=== PATIENT | male | born 1990 | race Caucasian/White ===

== ENCOUNTER 2021-04-20 10:43 | Emergency (ER) | payer SELFPAY ==
--- NOTE | ~2021-04-20 | CT_ITS ---
EXAMINATION: CT abdomen pelvis w con EXAM DATE: 04/20/2021 12:28 INDICATION: Right lower quadrant pain. TECHNIQUE: Spiral CT of the abdomen and pelvis was performed following intravenous injection of 100 m L Omnipaque 350. Axial, coronal and sagittal images of the abdomen and pelvis were reviewed. The do se-length product (DLP) for this examination was 1361.02 mGy-cm. The exposure was tailored according to patient size (auto mA exposure control), and iterative reconstruction (ASIR) was used as addition al dose reduction technique. There is no prior study for comparison. FINDINGS: The liver, spleen, adrenal glands and pancreas are unremarkable. Gallbladder is unremarkab le. No biliary obstruction. Portal and splenic veins are patent. Kidneys enhance symmetrically. T here is no hydronephrosis. The prostate is unremarkable. The bladder is unremarkable. There is no retroperitoneal or pelvic lymphadenopathy. The appendix is normal. The stomach and small bowel are unremarkable. There is colonic fluid, corre late for diarrhea. No free intraperitoneal gas. The heart is normal in size. There are no perica rdial or pleural effusions. The lung bases are unremarkable. The bones are unremarkable. IMPRESSION: 1. Colonic fluid. 2. Normal appendix. Reviewed, dictated and finalized at location A.
[2021-04-20 10:46] VITALS: BP 165/94; PULSE 79; RESP 18; TEMP 37.1; O2SAT 100
[2021-04-20 10:57] LABS: Basophils Absolute Auto 0.1 K/mm3 (0.0-0.1); Basophils Percent Auto 0.6 % (0.2-1.2); Eosinophils Absolute Auto 0.2 K/mm3 (0-0.3); Eosinophils Percent Auto 1.6 % (0-4.4); Hematocrit 45.6 % (42.0-52.0); Hemoglobin 15.1 g/dL (14.0-18.0); Immature Granulocyte Absolute 0.06 K/mm3 (0.00-0.031); Immature Granulocyte Percent A 0.4 % (0-0.5); Lymphocytes Absolute Auto 3.22 K/mm3 (0.9-3.2); Lymphocytes Percent Auto 21.7 % (18.3-44.2); Mean Corpuscular HGB Conc 33.1 g/dl (32-36); Mean Corpuscular Hemoglobin 28.7 pg (26-34); Mean Corpuscular Volume 86.5 fl (80-100); Mean Platelet Volume 9.8 fl (7.4-10.4); Monocytes Absolute Auto 0.7 K/mm3 (0.1-0.6); Monocytes Percent Auto 4.7 % (2.6-8.5); Neutrophils Absolute Auto 10.5 K/mm3 (1.3-6.7); Platelet Count Result 298 k/mm3 (150-375); Red Blood Count 5.27 M/mm3 (4.6-6.20); Red Cell Distribution Width 12.7 % (11.5-14.5); White Blood Count 14.8 K/mm3 (4.5-10.0)
[2021-04-20 11:07] LABS: Alanine Aminotransferase 28 U/L (4-50); Albumin Level 4.5 g/dL (3.5-5.1); Alkaline Phosphatase 89 U/L (38-126); Anion Gap 10 mmol/L (8-16); Aspartate Amino Transferase 24 U/L (17-59); Bilirubin,Total 0.5 mg/dL (0.2-1.3); Blood Urea Nitrogen 10 mg/dL (9-20); Calcium 9.6 mg/dL (8.4-10.2); Carbon Dioxide 25 mmol/L (22-30); Chloride 106 mmol/L (98-107); Estimated CRCL calculation 153 ml/min; Estimated Glomerular Filt Rate > 60; Glucose 101 mg/dL (75-110); Lipase 270 U/L (23-300); Potassium 4.2 mmol/L (3.4-5.0); Sodium 141 mmol/L (137-145)
--- NOTE | 2021-04-20 11:55 | ED.GENADULT ---
HPI - General Adult General Chief complaint: Unspecified Stated complaint: WHITE/Diarrhea/Not Feeling Well Time Seen by Provider: 04/20/21 11:54 History of Present Illness HPI narrative: RLQ pain for the past 2 days. Acutely worse since this morning, 04/22. Associated with watery diarrhea and nausea. Different fro usual IBS pain. Headache since this morning. Pulsating in quality. Different than typical headaches. Related Data Home Medications Medication Instructions Recorded Confirmed albuterol sulfate 2.5 mg INHALATION Q4-6H PRN 04/28/20 Allergies Allergy/AdvReac Type Severity Reaction Status Date / Time No Known Drug Allergies Allergy Unknown Unknown Verified 04/20/21 12:04 Feathers Allergy Intermediate Unknown Uncoded 04/28/20 07:11 Grass Allergy Unknown Unknown Uncoded 04/28/20 07:11 milk Allergy Unknown Unknown Uncoded 04/28/20 07:11 Review of Systems Review of Systems: All systems reviewed & are unremarkable except as noted in HPI and below Constitutional: Constitutional: Denies fever(s) and Reports headache(s) Eyes: Eyes: Reports no additional eye complaints ENT: Reports system reviewed and no additional complaints, except as documented Cardiovascular: Cardiovascular: Denies chest pain Respiratory: Respiratory: Denies dyspnea Gastrointestinal: Gastrointestinal: Reports as per HPI Genitourinary: Genitourinary: Denies hematuria and Denies dysuria Integumentary/Breasts: Skin/Breast: Reports system reviewed and no additional complaints, except as docu Neurologic: Reports system reviewed and no additional complaints, except as documented [facility] Past Medical History Medical History (Updated 04/20/21 @ 15:30 by Jaime Gurrola MD) Asthma Cigarette nicotine dependence Hypertension DYLAN on CPAP Overweight Family History Family History Mother Asthma Social History Social History Smoking status: Former smoker Tobacco type: cigarettes and cigars Additional smoking assessment comments: Quit 2019 Exam Const: General: healthy appearing, no acute distress and alert Nutritional Appearance: obese Orientation/consciousness: patient oriented x3 HENMT: Head: normal to inspection Eyes: Pupils: Equal, round and reactive pupils present Neck: Neck: normal visual inspection and no lymphadenopathy Resp: Effort & Inspection: normal respiratory effort Auscultation: clear to auscultation bilaterally, no rales, no rhonchi and no wheezes Cardio: Jugular venous distension: no JVD Rate: regular rate Rhythm: regular rhythm Heart sounds: no murmurs GI: Inspection: non-distended GI Palp: Yes Soft to palpation, Yes Tenderness to palpation present (GI) (RLQ), No Guarding due to palpation present (GI) and No Rebound tenderness present Auscultation: normal bowel sounds Skin: General skin exam: normal color Neuro: General: patient oriented x3 and moves all extremities Speech: normal speech Extrem: General: no edema Psych: Appearance: well kempt Affect: normal affect Course Vital Signs Vital signs: Vital Signs Temperature 37.1 C 04/20/21 10:46 Pulse Rate 79 04/20/21 10:46 Respiratory Rate 18 04/20/21 10:46 Blood Pressure 165/94 H 04/20/21 10:46 Pulse Oximetry 100 04/20/21 10:46 Temperature 37.1 C 04/20/21 10:46 Pulse Rate 79 04/20/21 10:46 Respiratory Rate 18 04/20/21 10:46 Blood Pressure 165/94 H 04/20/21 10:46 Pulse Oximetry 100 04/20/21 10:46 Medical Decision Making MDM Narrative Medical decision making narrative: CT shows fluid in the colon. Most likely viral enteritis. Headache probably related to dehydration from the diarrhea. Differential Diagnosis Differential Diagnosis: Appendicitia, IBS, colitis, other Medical Records Medical records reviewed: Yes I reviewed the external patient's medical records. Vital Signs Vital Signs: Vital Sign
[2021-04-20 12:10] LABS: Add Urine Microscopic? NO; Appearance Urine Clear (Clear); Bilirubin Urine Negative (Negative); Blood Urine Negative (Negative); Color Urine Straw (Yellow); Glucose Urine UA Negative (Negative); Ketones Urine Negative (Negative); Leukocyte Esterase Ur Negative LEU/UL (Negative); Nitrate Urine Negative (Negative); Protein Urine Negative (Negative); Specific Grav Ur 1.014 (1.001-1.035); Urobilinogen Urine Negative mg/dL (<2.0)
[2021-04-20] MEDS: METOCLOPRAMIDE HCL INJ 10 MG/2 ML VIAL IV PUSH (12:13)
[2021-04-20] MEDS: MORPHINE SULFATE (*CRX) 4 MG/ML INJ IV PUSH (12:13)
[2021-04-20] MEDS: SODIUM CHLORIDE 0.9% IV 1,000 ML 999 ML IV CONT (12:13)
[2021-04-20 12:51] LABS: INR 0.8; Prothrombin Time 12.1 Seconds (11.1-14.7)
[2021-04-20 12:52] LABS: Partial Thromboplastin Time 35.2 SECONDS (22.3-36.8)
[2021-04-20] MEDS: DICYCLOMINE HCL INJ 20 MG/2 ML VIAL IM (13:02)
[2021-04-20] MEDS: SODIUM CHLORIDE 0.9% IV 2,000 ML 999 ML IV CONT (13:03)
[2021-04-20] MEDS: KETOROLAC 30 MG/ML VIAL (*BKC) IV PUSH (14:39)
== END 2021-04-20 15:51 | disposition home or self-care (01) ==
PROVIDERS: Emergency Medicine; Emergency Provider Emergency Medicine
DX: K52.9 Noninfective gastroenteritis and colitis, unspecified (principal); J45.909 Unspecified asthma, uncomplicated; G47.33 Obstructive sleep apnea (adult) (pediatric); E66.3 Overweight; Z68.38 Body mass index [BMI] 38.0-38.9, adult; Z87.891 Personal history of nicotine dependence
CPT/HCPCS: 36415; 74177; 80053; 81003; 83690; 85025; 85610; 85730; 96361; 96372; 96374; 96375; 99284; J0500; J1885; J2270; J2765; J7030; Q9967

== ENCOUNTER 2021-07-22 08:38 | Observation (INO) | payer OTHER, SELFPAY ==
--- NOTE | ~2021-07-22 | XR_ITS ---
EXAMINATION: XR chest 1V portable INDICATION: Shortness of breath, severe cough, COVID positive TECHNIQUE: Portable AP chest at 0939 hours COMPARISON: 01/06/2019 FINDINGS: The lung volumes are low. There are patchy bilateral airspace opacities. No pleural effusio n or pneumothorax is identified. The cardiomediastinal silhouette is normal. IMPRESSION: 1. Patchy bilateral airspace opacities, consistent with atelectasis versus pneumonia. Reviewed, dictated and finalized at location B. IMPRESSION: 1. Patchy bilateral airspace opacities, consistent with atelectasis versus pneu monia.
[2021-07-22 08:38] VITALS: BP 144/87; PULSE 130; RESP 14; TEMP 39.8; O2SAT 97
[2021-07-22 09:19] LABS: SARS-CoV-2 Ag Positive (Negative)
[2021-07-22 09:29] LABS: Basophils Absolute Auto 0.02 K/mm3 (0.00-0.10); Basophils Percent Auto 0.2 % (0.0-1.0); Hematocrit 43.4 % (40.0-54.0); Hemoglobin 14.9 g/dL (14.0-18.0); Immature Granulocyte Absolute 0.03 K/mm3 (0.00-0.00); Immature Granulocyte Percent A 0.4 % (0.0-0.0); Lymphocytes Absolute Auto 1.31 K/mm3 (1.10-4.50); Lymphocytes Percent Auto 15.7 % (18.0-42.0); Mean Corpuscular HGB Conc 34.3 g/dL (32.0-36.0); Mean Corpuscular Hemoglobin 28.9 pg (27.0-31.0); Mean Corpuscular Volume 84.3 fL (78.0-102.0); Mean Platelet Volume 9.9 fl (8.7-11.0); Monocytes Absolute Auto 0.48 K/mm3 (0.10-0.90); Monocytes Percent Auto 5.7 % (2.0-11.0); Neutrophils Absolute Auto 6.5 K/mm3 (1.7-7.2); Platelet Count Result 184 K/mm3 (150-420); Red Blood Count 5.15 M/mm3 (4.70-6.10); Red Cell Distribution Width 12.7 % (11.6-14.4); White Blood Count 8.4 K/mm3 (4.8-10.8)
[2021-07-22 09:31] LABS: Base Excess ABG 0.6 mmol/L (0-2); Device ROOM AIR; HCO3 ABG 21.8 mmol/L (23-29); Modified Allen's Test Pass; Oxygen Content ABG 20.8 %vol (16.0-22.0); Oxygen Saturation ABG 96.1 % (95-97); Oxyhemoglobin 95.4 % (94-100); PCO2 ABG 27.1 mmHg (35-45); PO2 ABG 75.6 mmHg (80-90); Site Drawn LEFT RADIAL; Total Hemoglobin 15.5 g/dL (12.0-18.0); pH ABG 7.52 (7.35-7.45)
[2021-07-22 09:52] LABS: Alanine Aminotransferase 44 U/L (16-63); Albumin Level 3.6 g/dL (3.4-5.0); Alkaline Phosphatase 68 U/L (46-116); Anion Gap 14 mmol/L (8-16); Aspartate Amino Transferase 32 U/L (15-37); Bilirubin,Total 0.7 mg/dL (0.00-1.00); Blood Urea Nitrogen 8 mg/dL (7-18); Calcium 8.5 mg/dL (8.5-10.1); Carbon Dioxide 23 mmol/L (21-32); Chloride 101 mmol/L (98-108); Estimated CRCL calculation 112 ml/min; Estimated Glomerular Filt Rate > 60; Glucose 115 mg/dL (70-99); Osmolality Calculated 285 mOsm/kg (285-295); Potassium 3.5 mmol/L (3.5-5.1); Sodium 138 mmol/L (136-145); Total Protein 8.1 g/dL (6.4-8.2)
[2021-07-22] MEDS: SODIUM CHLORIDE 0.9% IV 1,000 ML 999 ML IV CONT (10:00)
--- NOTE | 2021-07-22 10:08 | ED.URI ---
HPI - URI/Sore Throat General Chief Complaint: Upper Respiratory Infection Stated Complaint: FEVER COUGH Source: patient Mode of arrival: ambulatory Limitations: no limitations History of Present Illness HPI Narrative: this is a 31-year-old unvaccinated the COVID gentleman that presents with a positive exposure to COVID with shortness of breath with some increased heart rate with fever shortness breath cough that is nonproductive with no chest pain no nausea vomiting no abdominal pain. MD elicited complaint: fever, cough and nasal congestion Onset (ago): day(s) Consistency: constant Severity: moderate Related Data Home Medications Medication Instructions Recorded Confirmed No Home Medications 07/22/21 07/22/21 Allergies Allergy/AdvReac Type Severity Reaction Status Date / Time No Known Drug Allergies Allergy Unknown Unknown Verified 04/20/21 12:04 Feathers Allergy Intermediate Unknown Uncoded 04/28/20 07:11 Grass Allergy Unknown Unknown Uncoded 04/28/20 07:11 milk Allergy Unknown Unknown Uncoded 04/28/20 07:11 Review of Systems Review of Systems: All systems reviewed & are unremarkable except as noted in HPI and below PMFSH Past Medical History Medical History (Updated 07/22/21 @ 10:11 by Paul Michael MD) Asthma Cigarette nicotine dependence Hypertension DYLAN on CPAP Overweight Family History Family History Mother Asthma Social History Social History Smoking status: Former smoker Tobacco type: cigarettes and cigars Additional smoking assessment comments: Quit 2019 Exam Const: General: no acute distress Orientation/consciousness: patient oriented x3 HENMT: Head: normal to inspection Eyes: Conjunctivae: conjunctivae normal Pupils: Equal, round and reactive pupils present EOM: EOMs intact bilaterally Direct Ophthalmoscopy: no photophobia Neck: Neck: normal visual inspection, no lymphadenopathy and no meningeal signs Chest: Chest palpation & inspection: normal inspection of the chest Resp: Effort & Inspection: normal respiratory effort Auscultation: diminished lung sounds Cardio: Rate: regular rate and tachycardic GI: GI Palp: Yes Soft to palpation Urinary Catheter: Urinary Catheter: patent and draining Back/Spine/Pelvis: Back: no CVA tenderness Skin: General skin exam: normal color Rashes: no rashes Neuro: General: patient oriented x3 Psych: Mental Status: mental status grossly normal Affect: normal affect Course Course Emergency Course: Patient with some COVID pneumonia positive for COVID started IV fluids and g of Tylenol reviewed chest x-ray and COVID positive results and will admit to inpatient observation. Vital Signs Vital signs: Vital Signs Temperature 39.8 C H 07/22/21 08:38 Pulse Rate 130 H 07/22/21 08:38 Respiratory Rate 14 07/22/21 08:38 Blood Pressure 144/87 H 07/22/21 08:38 Pulse Oximetry 97 07/22/21 08:38 Temperature 39.8 C H 07/22/21 08:38 Pulse Rate 130 H 07/22/21 08:38 Respiratory Rate 14 07/22/21 08:38 Blood Pressure 144/87 H 07/22/21 08:38 Pulse Oximetry 97 07/22/21 08:38 MDM - URI/Sore Throat Lab Data Result diagrams: 07/22/21 09:20 07/22/21 09:20 Labs: Lab Results 07/22/21 07/22/21 07/22/21 Range/Units 08:45 09:20 09:20 WBC 8.4 (4.8-10.8) K/mm3 RBC 5.15 (4.70-6.10) M/mm3 Hgb 14.9 (14.0-18.0) g/dL Hct 43.4 (40.0-54.0) % MCV 84.3 (78.0-102.0) fL MCH 28.9 (27.0-31.0) pg MCHC 34.3 (32.0-36.0) g/dL RDW 12.7 (11.6-14.4) % Plt Count 184 (150-420) K/mm3 MPV 9.9 (8.7-11.0) fl Immature Gran % (Auto) 0.4 H (0.0-0.0) % Neut % (Auto) 78.0 H (50.0-70.0) % Lymph % (Auto) 15.7 L (18.0-42.0) % Emery % (Auto) 5.7 (2.0-11.0) % Eos % (Auto) 0.0 L (1.0-6.0) % Baso % (Auto) 0.2 (0.0-1.0) % Lym
[2021-07-22] MEDS: ACETAMINOPHEN 500 MG TABLET 1000 MG PO (10:19)
--- NOTE | 2021-07-22 10:35 | PC.NURSE ---
1033 ROOM 211 PROVIDED BY KENNETH YA RN
[2021-07-22 10:54] VITALS: BP 141/84; PULSE 108; RESP 20; O2SAT 94
[2021-07-22] MEDS: ALBUTEROL SULFATE (*SP) INHALER 2 PUFF INHALATION ×4 (11:06→21:41)
[2021-07-22] MEDS: DEXAMETHASONE SOD PHOS INJ 4 MG/ML VIAL 6 MG IV PUSH (11:06)
[2021-07-22] MEDS: REMDESIVIR 200 MG/NS 250 ML 200 MG/250 ML BAG 250 MG IVPB (11:07)
--- NOTE | 2021-07-22 11:42 | PC.NURSE ---
VIANNEY Esqueda during entirety of ER visit. Error in documentation, Leonel FAITH signed into computer.
[2021-07-22 11:47] VITALS: TEMP 35.9
--- NOTE | 2021-07-22 11:53 | PC.NURSE ---
Patient admitted to room 211 d/t covid pneumonia after testing positive for covid 07/22/21 with symptoms starting last night 07/21/21. Patient presented with cough/fever w/tylenol effective for fever. Patient has been educated and informed on presenting condition and limitations.
--- NOTE | 2021-07-22 12:13 | PM.IMHP ---
H&P: HPI History of Present Illness Date/Time: 07/22/21 12:13 this is a 31-year-old male that presented to emergency department with complaints of uncontrollable nonproductive coughing, racing heart, dizziness, fatigue, and fever. Patient has a past medical history of asthma,, nicotine dependence, irritable bowel syndrome, hypertension, sleep apnea with the use of CPAP. According to patient over the weekend he developed a cough with clear sputum production that he thought was a sinus infection due to his history of sinusitis. Patient noted that afterward he developed dizziness along with a fever he notes his highest fever at home was 102.0. Patient notes last night he was unable to sleep due to excessive coughing , fever ,dizziness in his racing heart. Patient states that he did take [id number] cold and flu medicine to relieve his symptoms with no relief. Vital signs 96.6, 108, 18, 94% on room air, 141/84, WBCs 8.4, hemoglobin 14.9, hematocrit 43.3, platelet 184, pH 7.52, CO2 27.1, O2 75.6, bicarb 21.8, sodium 138, potassium 3.5, BUN 8, creatinine 0.98, glucose 115, liver function test within normal limits, SARS positive. Patient has not been vaccinated. Patient claims to be vaccinated after 90 days, chest x-ray indicates Covid pneumonia, EKG sinus tachycardia with a heart rate of 156. Patient being admitted for Covid Chief Complaint: Dizziness, uncontrolled coughing, fever, palpitation Review of Systems Review of Systems: A 14 organ system Review of Systems was performed and pertinent positives included in the HPI, otherwise remaining ROS is negative. [facility] Past Medical History Medical History (Updated 07/22/21 @ 10:11 by Paul Michael MD) Asthma Cigarette nicotine dependence Hypertension DYLAN on CPAP Overweight Family History Family History Mother Asthma Social History Social History Smoking status: Former smoker Tobacco type: cigarettes and cigars Additional smoking assessment comments: Quit 2019 Meds Home Medications and Allergies Home Medications Medication Instructions Recorded Confirmed Type No Home Medications 07/22/21 07/22/21 History Allergies Allergy/AdvReac Type Severity Reaction Status Date / Time No Known Drug Allergies Allergy Unknown Unknown Verified 04/20/21 12:04 Feathers Allergy Intermediate Unknown Uncoded 04/28/20 07:11 Grass Allergy Unknown Unknown Uncoded 04/28/20 07:11 milk Allergy Unknown Unknown Uncoded 04/28/20 07:11 Vital Signs Vital Signs - 24 hr 07/22/21 08:38 07/22/21 10:54 07/22/21 11:47 Temperature 103.6 F H 96.6 F L Pulse Rate 130 H 108 H Respiratory Rate 14 20 Blood Pressure 144/87 H 141/84 H Pulse Oximetry 97 94 Exam Narrative: GENERAL: This is a well-nourished, well-developed patient, in no apparent distress. HEAD: normocephalic, atraumatic. EYES: PERRL. Sclera clear/white. Vision is grossly intact. EARS: External ears normal, auditory canals clear and without drainage, TMs normal without perforation. Hearing grossly intact. NOSE: External nose normal with no obvious nasal discharge, nares without redness, no rhinorrhea. THROAT: Mucous membranes moist, posterior pharynx clear. NECK: Neck supple, non-tender without lymphadenopathy, masses or thyromegaly. CARDIOVASCULAR: Regular rate and rhythm without murmurs, gallops, or rubs. RESPIRATORY: Diminished GASTROINTESTINAL: Abdomen soft, non-tender, nondistended. Bowel sounds are active. No hepato-splenomegaly, or palpable masses. No guarding. SKIN: warm, intact with no suspicious lesions or rash, good texture and turgor. NEURO: awake, alert, and oriented to person, place and time. There were no obvious focal neurologic abnormalities. Steady gait EXTREMITIES: Normal range of motion. No edema. No calf tenderness. Negative Homans sign bilaterally. BACK: Nontender without deformity or cr
[2021-07-22] MEDS: BENZONATATE 100 MG CAPSULE 200 MG PO ×2 (13:04→17:11)
[2021-07-22] MEDS: LOPERAMIDE HCL 2 MG CAPSULE PO (13:05)
[2021-07-22] MEDS: ENOXAPARIN 40 MG/0.4 ML SYRINGE SUB-Q ×2 (13:05→21:42)
[2021-07-22 16:00] VITALS: BP 120/73; PULSE 76; RESP 18; TEMP 35.6; O2SAT 95
[2021-07-22] MEDS: SODIUM CHLORIDE 0.9% IV 1,000 ML 100 ML IV CONT (17:20)
[2021-07-22] MEDS: HYDROcodone/acetaminophen (*CRX) 10-325 MG TABLET 1 TAB PO (21:40)
[2021-07-22] MEDS: BUDESONIDE/FORMOTEROL (*SP) 160-4.5 MCG 6 GM INH 2 PUFF INHALATION (21:41)
[2021-07-22] MEDS: guaiFENesin 12 HR 600 MG TABCR 1200 MG PO (21:42)
[2021-07-22 22:00] VITALS: BP 152/80; PULSE 108; RESP 20; TEMP 36; O2SAT 95
[2021-07-23] VITALS: BP 152/80; PULSE 108; RESP 20; TEMP 36; O2SAT 95
[2021-07-23] MEDS: SODIUM CHLORIDE 0.9% IV 1,000 ML 100 ML IV CONT ×3 (01:52→20:20)
[2021-07-23] MEDS: traMADol HCL (*CRX) 50 MG TABLET PO ×3 (01:53→20:24)
[2021-07-23 05:18] LABS: Basophils Absolute Auto 0.01 K/mm3 (0.00-0.10); Basophils Percent Auto 0.1 % (0.0-1.0); Hematocrit 41.5 % (40.0-54.0); Hemoglobin 13.9 g/dL (14.0-18.0); Immature Granulocyte Absolute 0.02 K/mm3 (0.00-0.00); Immature Granulocyte Percent A 0.3 % (0.0-0.0); Lymphocytes Absolute Auto 1.38 K/mm3 (1.10-4.50); Lymphocytes Percent Auto 17.6 % (18.0-42.0); Mean Corpuscular HGB Conc 33.5 g/dL (32.0-36.0); Mean Corpuscular Hemoglobin 28.7 pg (27.0-31.0); Mean Corpuscular Volume 85.6 fL (78.0-102.0); Mean Platelet Volume 9.8 fl (8.7-11.0); Monocytes Absolute Auto 0.49 K/mm3 (0.10-0.90); Monocytes Percent Auto 6.3 % (2.0-11.0); Neutrophils Absolute Auto 5.9 K/mm3 (1.7-7.2); Neutrophils Percent Auto 75.7 % (50.0-70.0); Platelet Count Result 191 K/mm3 (150-420); Red Blood Count 4.85 M/mm3 (4.70-6.10); Red Cell Distribution Width 12.7 % (11.6-14.4); White Blood Count 7.8 K/mm3 (4.8-10.8)
[2021-07-23 05:33] LABS: Prothrombin Time 10.8 Seconds (9.50-12.10)
[2021-07-23 05:40] LABS: Alanine Aminotransferase 47 U/L (16-63); Albumin Level 3.4 g/dL (3.4-5.0); Alkaline Phosphatase 64 U/L (46-116); Anion Gap 9 mmol/L (8-16); Aspartate Amino Transferase 33 U/L (15-37); Bilirubin,Total 0.4 mg/dL (0.00-1.00); Blood Urea Nitrogen 7 mg/dL (7-18); Calcium 8.1 mg/dL (8.5-10.1); Carbon Dioxide 27 mmol/L (21-32); Chloride 104 mmol/L (98-108); Estimated CRCL calculation 150 ml/min; Estimated Glomerular Filt Rate > 60; Glucose 115 mg/dL (70-99); Osmolality Calculated 289 mOsm/kg (285-295); Potassium 4.2 mmol/L (3.5-5.1); Sodium 140 mmol/L (136-145); Total Protein 7.6 g/dL (6.4-8.2)
[2021-07-23 05:44] VITALS: BP 168/91; PULSE 80; RESP 20; TEMP 36.1; O2SAT 96
[2021-07-23] MEDS: HYDROcodone/acetaminophen (*CRX) 10-325 MG TABLET 1 TAB PO ×3 (05:44→18:34)
[2021-07-23 08:00] VITALS: BP 148/74; PULSE 86; RESP 20; TEMP 36.9; O2SAT 98
[2021-07-23] MEDS: DEXAMETHASONE SOD PHOS INJ 4 MG/ML VIAL 6 MG IV PUSH (08:16)
[2021-07-23] MEDS: BENZONATATE 100 MG CAPSULE 200 MG PO ×3 (08:16→16:22)
[2021-07-23] MEDS: guaiFENesin 12 HR 600 MG TABCR 1200 MG PO ×3 (08:16→20:23)
--- NOTE | 2021-07-23 09:19 | P.PN_ITS ---
Progress Note: A&P Assessment and Plan (1) Pneumonia due to 2019 novel coronavirus: Code(s): U07.1 - COVID-19; J12.82 - Pneumonia due to coronavirus disease 2019 <MAYTE Gates - Last Filed: 07/23/21 09:22> Status: Acute <MAYTE Gates - Last Filed: 07/23/21 09:22> Assessment and Plan: * Covid positive * Blood gas pH 7.53, CO2 27.1, O2 75.6, bicarb 21.8 * Continue albuterol with Symbicort with remdesivir and dexamethasone, Tessalon Perles , guaifenesin supplementary oxygen * Continue supportive care * Lovenox 60 mg subcu every 12 hours * WBCs within normal limits <MAYTE Gates - Last Filed: 07/23/21 09:22> (2) DYLAN on CPAP: Code(s): G47.33 - Obstructive sleep apnea (adult) (pediatric); Z99.89 - Dependence on other enabling machines and devices <MAYTE Gates - Last Filed: 07/23/21 09:22> Status: Chronic <MAYTE Gates - Last Filed: 07/23/21 09:22> Assessment and Plan: * Patient uses a CPAP unable to tolerate will use supplementary oxygen for now <MAYTE Gates - Last Filed: 07/23/21 09:22> (3) Hypertension: Code(s): I10 - Essential (primary) hypertension <MAYTE Gates - Last Filed: 07/23/21 09:22> Status: Chronic <MAYTE Gates - Last Filed: 07/23/21 09:22> Assessment and Plan: * bp stable * Patient not on any home medication, will add if needed * Vital signs as ordered <MAYTE Gates - Last Filed: 07/23/21 09:22> (4) Cigarette nicotine dependence: Code(s): F17.210 - Nicotine dependence, cigarettes, uncomplicated <MAYTE Gates - Last Filed: 07/23/21 09:22> Status: Chronic <Lacy Perrin MAYTE - Last Filed: 07/23/21 09:22> Assessment and Plan: * Educated on cessation * Refused nicotine patch <MAYTE Gates - Last Filed: 07/23/21 09:22> (5) Overweight: Code(s): E66.3 - Overweight <Lacy Perrin MAYTE - Last Filed: 07/23/21 09:22> Status: Chronic <Lacy Perrin MAYTE - Last Filed: 07/23/21 09:22> Assessment and Plan: * Educated on healthy lifestyle <MAYTE Gates - Last Filed: 07/23/21 09:22> (6) Asthma: Code(s): J45.909 - Unspecified asthma, uncomplicated <Lacy Perrin MAYTE - Last Filed: 07/23/21 09:22> Status: Chronic <Lacy Perrin MAYTE - Last Filed: 07/23/21 09:22> Assessment and Plan: * Continue albuterol and Symbicort <Lacy Perrin MAYTE - Last Filed: 07/23/21 09:22> Subjective Date/time seen: 07/23/21 09:19 patient notes that he continues to be fatigued and has an uncontrollable cough with occasional shortness of breath that worsens with his cough. Patient did not sleep well overnight he was instructed to ask for his sleep medication to assist him with sleeping. Due to his history of asthma he was staying additional night and possibly be discharged tomorrow. The patient denies CP, palpitation, extremity numbness, lightheadedness, dizziness, constipation, diarrhea, chills, or fever. <Lacy DonovanRASHEED QuinterosAlpaLyly - Last Filed: 07/23/21 09:22> Review of Systems Review of Systems: A 14 organ system Review of Systems was performed and pertinent positives included in the HPI, otherwise remaining ROS is negative. <Wesclaudia Tih MAYTE Perrin - Last Filed: 07/23/21 09:22> Exam Narrative: GENERAL: This is a well-nourished, well-developed patient, in no apparent distress. HEAD: normocephalic, atraumati
--- NOTE | 2021-07-23 09:19 | WPDPN ---
Progress Note: A&P Assessment and Plan (1) Pneumonia due to 2019 novel coronavirus: Code(s): U07.1 - COVID-19; J12.82 - Pneumonia due to coronavirus disease 2019 <MAYTE Gates - Last Filed: 07/23/21 09:22> Status: Acute <MAYTE Gates - Last Filed: 07/23/21 09:22> Assessment and Plan: Covid positive Blood gas pH 7.53, CO2 27.1, O2 75.6, bicarb 21.8 Continue albuterol with Symbicort with remdesivir and dexamethasone, Tessalon Perles , guaifenesin supplementary oxygen Continue supportive care Lovenox 60 mg subcu every 12 hours WBCs within normal limits <MAYTE Gates - Last Filed: 07/23/21 09:22> (2) DYLAN on CPAP: Code(s): G47.33 - Obstructive sleep apnea (adult) (pediatric); Z99.89 - Dependence on other enabling machines and devices <MAYTE Gates - Last Filed: 07/23/21 09:22> Status: Chronic <MAYTE Gates - Last Filed: 07/23/21 09:22> Assessment and Plan: Patient uses a CPAP unable to tolerate will use supplementary oxygen for now <MAYTE Gates - Last Filed: 07/23/21 09:22> (3) Hypertension: Code(s): I10 - Essential (primary) hypertension <MAYTE Gates - Last Filed: 07/23/21 09:22> Status: Chronic <MAYTE Gates - Last Filed: 07/23/21 09:22> Assessment and Plan: bp stable Patient not on any home medication, will add if needed Vital signs as ordered <MAYTE Gates - Last Filed: 07/23/21 09:22> (4) Cigarette nicotine dependence: Code(s): F17.210 - Nicotine dependence, cigarettes, uncomplicated <MAYTE Gates - Last Filed: 07/23/21 09:22> Status: Chronic <MAYTE Gates - Last Filed: 07/23/21 09:22> Assessment and Plan: Educated on cessation Refused nicotine patch <MAYTE Gates - Last Filed: 07/23/21 09:22> (5) Overweight: Code(s): E66.3 - Overweight <MAYTE Gates - Last Filed: 07/23/21 09:22> Status: Chronic <MAYTE Gates - Last Filed: 07/23/21 09:22> Assessment and Plan: Educated on healthy lifestyle <MAYTE Gates - Last Filed: 07/23/21 09:22> (6) Asthma: Code(s): J45.909 - Unspecified asthma, uncomplicated <MAYTE Gates - Last Filed: 07/23/21 09:22> Status: Chronic <MAYTE Gates - Last Filed: 07/23/21 09:22> Assessment and Plan: Continue albuterol and Symbicort <MAYTE Gates - Last Filed: 07/23/21 09:22> Subjective Date/time seen: 07/23/21 09:19 patient notes that he continues to be fatigued and has an uncontrollable cough with occasional shortness of breath that worsens with his cough. Patient did not sleep well overnight he was instructed to ask for his sleep medication to assist him with sleeping. Due to his history of asthma he was staying additional night and possibly be discharged tomorrow. The patient denies CP, palpitation, extremity numbness, lightheadedness, dizziness, constipation, diarrhea, chills, or fever. <Lacy Perrin MAYTE - Last Filed: 07/23/21 09:22> Review of Systems Review of Systems: A 14 organ system Review of Systems was performed and pertinent positives included in the HPI, otherwise remaining ROS is negative. <Lacy Perrin MAYTE - Last Filed: 07/23/21 09:22> Exam Narrative: GENERAL: This is a well-nourished, well-developed patient, in no apparent distress. HEAD: normocephalic, atraumatic. EYES: PERRL. Sclera clear/white. Vision is grossly intact. EARS: External ears normal, auditory canals clear and without drainage, TMs normal without perforation. Hearing grossly intact. NOSE: External nose normal with no obvious nasal discharge, nares without redness, no rhinorrhea. THROAT: Mucous membranes moist, posterior pharynx clear. NECK: Neck supple, non-ten
[2021-07-23] MEDS: ALBUTEROL SULFATE (*SP) INHALER 2 PUFF INHALATION ×4 (10:28→21:01)
[2021-07-23] MEDS: ENOXAPARIN 40 MG/0.4 ML SYRINGE SUB-Q ×2 (10:28→21:02)
[2021-07-23] MEDS: BUDESONIDE/FORMOTEROL (*SP) 160-4.5 MCG 6 GM INH 2 PUFF INHALATION ×2 (10:28→21:01)
[2021-07-23] MEDS: REMDESIVIR 100 MG/NS 250 ML 100 MG/250 ML BAG 250 MG IVPB (10:58)
[2021-07-23 16:00] VITALS: BP 141/69; PULSE 73; RESP 20; TEMP 36.1; O2SAT 98
[2021-07-23] MEDS: traZODone HCL 50 MG TABLET 100 MG PO (21:02)
[2021-07-24] VITALS: BP 140/79; PULSE 60; RESP 18; TEMP 35.6; O2SAT 96
[2021-07-24] MEDS: HYDROcodone/acetaminophen (*CRX) 10-325 MG TABLET 1 TAB PO ×2 (02:00→12:36)
[2021-07-24] MEDS: SODIUM CHLORIDE 0.9% IV 1,000 ML 100 ML IV CONT (05:04)
[2021-07-24 05:30] LABS: Hematocrit 40.5 % (40.0-54.0); Hemoglobin 13.4 g/dL (14.0-18.0); Mean Corpuscular HGB Conc 33.1 g/dL (32.0-36.0); Mean Corpuscular Hemoglobin 28.9 pg (27.0-31.0); Mean Corpuscular Volume 87.5 fL (78.0-102.0); Platelet Count Result 218 K/mm3 (150-420); Red Blood Count 4.63 M/mm3 (4.70-6.10); Red Cell Distribution Width 12.8 % (11.6-14.4); White Blood Count 11.2 K/mm3 (4.8-10.8)
[2021-07-24 05:44] LABS: Prothrombin Time 10.5 Seconds (9.50-12.10)
[2021-07-24 05:50] LABS: Alanine Aminotransferase 43 U/L (16-63); Alkaline Phosphatase 62 U/L (46-116); Anion Gap 9 mmol/L (8-16); Aspartate Amino Transferase 29 U/L (15-37); Bilirubin,Total 0.3 mg/dL (0.00-1.00); Blood Urea Nitrogen 7 mg/dL (7-18); Calcium 8.3 mg/dL (8.5-10.1); Carbon Dioxide 27 mmol/L (21-32); Chloride 106 mmol/L (98-108); Estimated CRCL calculation 139 ml/min; Estimated Glomerular Filt Rate > 60; Glucose 117 mg/dL (70-99); Osmolality Calculated 293 mOsm/kg (285-295); Potassium 4.7 mmol/L (3.5-5.1); Sodium 142 mmol/L (136-145); Total Protein 6.9 g/dL (6.4-8.2)
[2021-07-24 05:53] LABS: Alanine Aminotransferase 43 U/L (16-63)
[2021-07-24 08:00] VITALS: BP 149/82; PULSE 89; RESP 16; TEMP 35.7; O2SAT 95
[2021-07-24] MEDS: BUDESONIDE/FORMOTEROL (*SP) 160-4.5 MCG 6 GM INH 2 PUFF INHALATION (08:00)
--- NOTE | 2021-07-24 08:13 | PM.DS ---
DS: Admitting Diagnosis Discharge Date 07/24/2021 Admitting Diagnosis this is a 31-year-old male that presented to emergency department with complaints of uncontrollable nonproductive coughing, racing heart, dizziness, fatigue, and fever. Patient has a past medical history of asthma,, nicotine dependence, irritable bowel syndrome, hypertension, sleep apnea with the use of CPAP. According to patient over the weekend he developed a cough with clear sputum production that he thought was a sinus infection due to his history of sinusitis. Patient noted that afterward he developed dizziness along with a fever he notes his highest fever at home was 102.0. Patient notes last night he was unable to sleep due to excessive coughing , fever ,dizziness in his racing heart. Patient states that he did take [id number] cold and flu medicine to relieve his symptoms with no relief. Patient will discharge today and continue care at home with [id number] medication for his coughing in congestion. He has not required any oxygen and is safe to go home with oxygen. The patient denies SOB, CP, palpitation, extremity numbness, lightheadedness, dizziness, constipation, diarrhea, chills, or fever. DS: Discharge Diagnosis Discharge Diagnosis (1) Pneumonia due to 2019 novel coronavirus: Code(s): U07.1 - COVID-19; J12.82 - Pneumonia due to coronavirus disease 2019 Status: Acute Assessment and Plan: Covid positive Blood gas pH 7.53, CO2 27.1, O2 75.6, bicarb 21.8 Continue albuterol with Symbicort with remdesivir and dexamethasone, Tessalon Perles , guaifenesin supplementary oxygen Continue supportive care Lovenox 60 mg subcu every 12 hours WBCs within normal limits Discharge Home with dexamethasone (2) DYLAN on CPAP: Code(s): G47.33 - Obstructive sleep apnea (adult) (pediatric); Z99.89 - Dependence on other enabling machines and devices Status: Chronic Assessment and Plan: Patient uses a CPAP unable to tolerate will use supplementary oxygen for now (3) Hypertension: Code(s): I10 - Essential (primary) hypertension Status: Chronic Assessment and Plan: bp stable Patient not on any home medication, will add if needed Vital signs as ordered (4) Cigarette nicotine dependence: Code(s): F17.210 - Nicotine dependence, cigarettes, uncomplicated Status: Chronic Assessment and Plan: Educated on cessation Refused nicotine patch (5) Overweight: Code(s): E66.3 - Overweight Status: Chronic Assessment and Plan: Educated on healthy lifestyle (6) Asthma: Code(s): J45.909 - Unspecified asthma, uncomplicated Status: Chronic Assessment and Plan: Continue albuterol and Symbicort DS: Summary Hospital Course Hospital Course: this is a 31-year-old male that presented to emergency department with complaints of uncontrollable nonproductive coughing, racing heart, dizziness, fatigue, and fever. Patient has a past medical history of asthma,, nicotine dependence, irritable bowel syndrome, hypertension, sleep apnea with the use of CPAP. According to patient over the weekend he developed a cough with clear sputum production that he thought was a sinus infection due to his history of sinusitis. Patient noted that afterward he developed dizziness along with a fever he notes his highest fever at home was 102.0. Patient notes last night he was unable to sleep due to excessive coughing , fever ,dizziness in his racing heart. Patient states that he did take [id number] cold and flu medicine to relieve his symptoms with no relief. Patient symptoms have improved we will discharge home with dexamethasone in cough suppressant and decongestant. Educated on quarantining Time Spent with Patient Time attestation: Total time spent providing and/or coordinating discharge services: 60 minutes Exam Narrative: GENERAL: This is a well-nourished, well-developed collins
[2021-07-24] MEDS: ALBUTEROL SULFATE (*SP) INHALER 2 PUFF INHALATION (08:30)
[2021-07-24] MEDS: guaiFENesin 12 HR 600 MG TABCR 1200 MG PO (09:00)
[2021-07-24] MEDS: BENZONATATE 100 MG CAPSULE 200 MG PO (09:10)
[2021-07-24] MEDS: DEXAMETHASONE SOD PHOS INJ 4 MG/ML VIAL 6 MG IV PUSH (09:40)
[2021-07-24] MEDS: REMDESIVIR 100 MG/NS 250 ML 100 MG/250 ML BAG 270 MG IVPB (10:06)
--- NOTE | 2021-07-24 12:39 | PC.NURSE ---
Pt discharged to home in stable condition. Discharge instructions given to pt. Pt verbalized understanding. RN helped pt to family car with WC.
--- NOTE | 2021-07-26 13:26 | PC.NURSE ---
Pt states he received and understood his discharge instructions. Pt also states everything was great .
== END 2021-07-24 12:20 | disposition home or self-care (01) ==
LOC: CHSED 10:36 → CHS2ND 10:36
PROVIDERS: Nurse Practitioner; Admitting Provider Emergency Medicine; Emergency Provider Emergency Medicine; Visit Provider Emergency Medicine
DX: U07.1 COVID-19 (principal); J12.82 Pneumonia due to coronavirus disease 2019; J45.909 Unspecified asthma, uncomplicated; I10 Essential (primary) hypertension; G47.33 Obstructive sleep apnea (adult) (pediatric); E66.3 Overweight; Z87.891 Personal history of nicotine dependence
CPT/HCPCS: 36415; 36600; 71045; 80053; 82805; 84460; 85025; 85027; 85610; 87040; 87426; 96360; 96361; 96365; 96366; 96372; 96375; 96376; 99285; A9270; C9803; G0378; G0379; J1100; J1650; J7030

== ENCOUNTER 2021-11-12 11:17 | Emergency (ER) | payer OTHER, SELFPAY ==
--- NOTE | ~2021-11-12 | XR_ITS ---
EXAMINATION: XR chest 2V DATE: 11/12/2021 13:28 INDICATION: Left chest pain. TECHNIQUE: Frontal and lateral views of the chest were obtained. COMPARISON: Chest single view 07/22/2021, CT abdomen and pelvis 04/20/2021 FINDINGS: The chest demonstrates clear lungs without pneumonia, pleural effusion, or pneumothorax. Th e heart size is normal. IMPRESSION: 1. No acute cardiopulmonary disease. Reviewed, dictated and finalized at location A. H MINISTRY DIRECTOR
[2021-11-12 11:20] VITALS: BP 145/85; PULSE 83; PULSE 85; RESP 16; TEMP 36.2; O2SAT 99
--- NOTE | 2021-11-12 11:35 | ECG_ITS ---
Measurements Intervals [place] Rate: 74 P: 53 [place]: 171 QRS: 21 QRSD: 88 T: 14 QT: 363 QTc: 403 Interpretive Statements SINUS RHYTHM BASELINE WANDER- III, AVF, V3-V6 BORDERLINE T WAVE ABNORMALITY- INFERIOR LEADS BORDERLINE ECG Electronically Signed On 11-12-2021 14:54:51 [employer] SALES [employer]NAGER by Burt Sosa D.O.
--- NOTE | 2021-11-12 11:43 | PCCARD ---
EKG completed at 1127. Shown to Dr. Michael
[2021-11-12] MEDS: KETOROLAC (*BKC) 60 MG/2 ML VIAL IM (11:50)
[2021-11-12] MEDS: MAG HYDROX/ALUMINUM HYD/SIMETH 30 ML, PHENobarb/HYOSCY/ATROPINE/SCOP 32.4 MG, LIDOCAINE... PO (11:52)
[2021-11-12 11:59] VITALS: BP 123/78; PULSE 85; RESP 20; O2SAT 100
[2021-11-12 12:06] LABS: Basophils Absolute Auto 0.09 K/mm3 (0.00-0.10); Basophils Percent Auto 0.8 % (0.0-1.0); Eosinophils Absolute Auto 0.25 K/mm3 (0.02-0.50); Eosinophils Percent Auto 2.2 % (1.0-6.0); Hematocrit 42.2 % (40.0-54.0); Hemoglobin 13.7 g/dL (14.0-18.0); Immature Granulocyte Absolute 0.03 K/mm3 (0.00-0.00); Immature Granulocyte Percent A 0.3 % (0.0-0.0); Lymphocytes Absolute Auto 3.17 K/mm3 (1.10-4.50); Lymphocytes Percent Auto 28.4 % (18.0-42.0); Mean Corpuscular HGB Conc 32.5 g/dL (32.0-36.0); Mean Corpuscular Hemoglobin 28.4 pg (27.0-31.0); Mean Corpuscular Volume 87.4 fL (78.0-102.0); Mean Platelet Volume 9.8 fl (8.7-11.0); Monocytes Absolute Auto 0.66 K/mm3 (0.10-0.90); Monocytes Percent Auto 5.9 % (2.0-11.0); Neutrophils Percent Auto 62.4 % (50.0-70.0); Platelet Count Result 290 K/mm3 (150-420); Red Blood Count 4.83 M/mm3 (4.70-6.10); Red Cell Distribution Width 12.3 % (11.6-14.4); White Blood Count 11.2 K/mm3 (4.8-10.8)
[2021-11-12 12:15] LABS: D Dimer 0.19 mg/L (0.19-0.50)
[2021-11-12 12:25] LABS: Alanine Aminotransferase 30 U/L (16-63); Albumin Level 3.6 g/dL (3.4-5.0); Alkaline Phosphatase 84 U/L (46-116); Anion Gap 9 mmol/L (8-16); Aspartate Amino Transferase 12 U/L (15-37); Bilirubin,Total 0.5 mg/dL (0.00-1.00); Blood Urea Nitrogen 13 mg/dL (7-18); Calcium 8.8 mg/dL (8.5-10.1); Carbon Dioxide 27 mmol/L (21-32); Chloride 104 mmol/L (98-108); Estimated CRCL calculation 128 ml/min; Estimated Glomerular Filt Rate > 60; Glucose 98 mg/dL (70-99); NT Pro B Type Natriuretic Pept 12 pg/mL (0-125); Osmolality Calculated 290 mOsm/kg (285-295); Potassium 3.6 mmol/L (3.5-5.1); Sodium 140 mmol/L (136-145); Troponin I 6.4 ng/L (0.00-60.4)
[2021-11-12 12:29] VITALS: BP 145/85; PULSE 79; RESP 16; O2SAT 99
[2021-11-12 12:49] LABS: SARS-CoV-2 RNA PCR Negative (Negative)
--- NOTE | 2021-11-12 13:33 | ED.CHESTPAIN ---
HPI - Chest Pain General Chief Complaint: Chest Pain Stated Complaint: fast heart rate/chest burning/pain in shoulder Source: patient Mode of arrival: ambulatory Limitations: no limitations History of Present Illness HPI narrative: this is a 31-year-old gentleman with history of asthma presents with some chest discomfort reproducible with epigastric discomfort with some burning sensation that radiates from the epigastric to his parasternal area with some no smoking history no family history of heart disease no fever chills currently no shortness of breath no nausea vomiting no abdominal pain. MD complaint: chest pain Onset (ago): hour(s) Timing of current episode: episodic Prior episodes: No Onset: during rest Pain location: epigastric and subxiphoid Severity: moderate Pain scale (0-10): 6 Quality: aching Relieving factors: antacids Exacerbating factors: nothing Related Data Allergies Allergy/AdvReac Type Severity Reaction Status Date / Time No Known Drug Allergies Allergy Unknown Unknown Verified 11/12/21 13:12 Feathers Allergy Intermediate Unknown Uncoded 04/28/20 07:11 Grass Allergy Unknown Unknown Uncoded 04/28/20 07:11 milk Allergy Unknown Unknown Uncoded 04/28/20 07:11 Review of Systems Review of Systems: All systems reviewed & are unremarkable except as noted in HPI and below PMFSH Past Medical History Medical History (Updated 11/12/21 @ 13:37 by Paul Michael MD) Asthma Cigarette nicotine dependence Hypertension DYLAN on CPAP Overweight Family History Family History Mother Asthma Social History Social History Smoking status: Former smoker Tobacco type: cigarettes and cigars Additional smoking assessment comments: Quit 2019 Alcohol intake: unknown Substance use: never Spiritual care concerns: No Exam Const: General: no acute distress Orientation/consciousness: patient oriented x3 HENMT: Head: normal to inspection Eyes: Conjunctivae: conjunctivae normal Pupils: Equal, round and reactive pupils present EOM: EOMs intact bilaterally Direct Ophthalmoscopy: no photophobia Neck: Neck: normal visual inspection, no lymphadenopathy and no meningeal signs Chest: Chest palpation & inspection: normal inspection of the chest Resp: Effort & Inspection: normal respiratory effort Auscultation: clear to auscultation bilaterally Cardio: Rate: regular rate Rhythm: regular rhythm GI: Auscultation: normal bowel sounds Urinary Catheter: Urinary Catheter: patent and draining Back/Spine/Pelvis: Back: no CVA tenderness Skin: General skin exam: normal color Rashes: no rashes Neuro: General: patient oriented x3 and moves all extremities Extrem: General: normal to inspection and no pedal edema Psych: Mental Status: mental status grossly normal Affect: normal affect Attitude: cooperative Course Course Emergency Course: Labs and chest x-ray reviewed with patient the patient received GI cocktail along with IM Toradol patient states that his symptoms have improved, will advise discharge and follow-up with his primary care physician. Vital Signs Vital signs: Vital Signs Temperature 36.2 C L 11/12/21 11:20 Pulse Rate 85 11/12/21 11:20 Respiratory Rate 16 11/12/21 11:20 Blood Pressure 145/85 H 11/12/21 11:20 Pulse Oximetry 99 11/12/21 11:20 Temperature 36.2 C L 11/12/21 11:20 Pulse Rate 79 11/12/21 12:29 Respiratory Rate 16 11/12/21 12:29 Blood Pressure 145/85 H 11/12/21 12:29 Pulse Oximetry 99 11/12/21 12:29 MDM - Chest Pain Lab Data Result diagrams: 11/12/21 11:56 11/12/21 11:56 Labs: Lab Results 11/12/21 11/12/21 11/12/21 Range/Units 11:56 11:56 11:56 WBC 11.2 H (4.8-10.8) K/mm3 RBC 4.83 (4.70-6.10) M/mm3 Hgb 13.7 L (14.0-18.0) g/dL Hct 42.2 (40.0-54.0) % MCV 87.4 (78.0-102
[2021-11-12 13:44] VITALS: BP 136/80; PULSE 60; RESP 22; O2SAT 96
== END 2021-11-12 13:52 | disposition home or self-care (01) ==
PROVIDERS: Emergency Provider Emergency Medicine
DX: M94.0 Chondrocostal junction syndrome [Tietze] (principal); K21.9 Gastro-esophageal reflux disease without esophagitis; Z20.822 Contact with and (suspected) exposure to COVID-19
CPT/HCPCS: 36415; 71046; 80053; 83880; 84484; 85025; 85380; 93005; 96372; 99283; 99284; A9270; C9803; J1885; U0003; U0005

== ENCOUNTER 2022-06-02 21:17 | Emergency (ER) | payer OTHER, SELFPAY ==
--- NOTE | ~2022-06-02 | CT_ITS ---
EXAMINATION: CTA chest PE protocol DATE: 06/02/2022 23:17 INDICATION: Tachycardia. History of blood clot in left lower extremity. Cough and dizziness. TECHNIQUE: Computed tomography (CT) of the chest was performed with 200 cc Omnipaque 350 intravenous contrast. The dose-length product was 2231.66 mGy-cm. COMPARISON: None FINDINGS: Study is technically adequate without evidence for central pulmonary embolism. Evaluation o f the peripheral pulmonary arteries limited by motion. No significant pleural or pericardial effusion . Heart size normal. No mediastinal lymphadenopathy. The upper abdomen is unremarkable. No pneumothor ax. No endobronchial lesions. No focal airspace consolidation. No pulmonary nodules or masses. There is gynecomastia. IMPRESSION: 1. No evidence for large central pulmonary embolism. No acute cardiopulmonary disease. Reviewed, dictated and finalized at location A. IMPRESSION: 1. No evidence for large central pulmonary embolism. No acute cardiopulmonary d isease.
--- NOTE | ~2022-06-02 | XR_ITS ---
EXAMINATION: XR chest 2V DATE: 06/02/2022 21:52 INDICATION: Shortness of breath. Chest pain. TECHNIQUE: Frontal and lateral views of the chest were obtained. COMPARISON: Chest 2 views 11/12/2021 FINDINGS: The chest demonstrates clear lungs without pneumonia, pleural effusion, or pneumothorax. Th e heart size is normal. IMPRESSION: 1. No acute cardiopulmonary disease. Reviewed, dictated and finalized at location A.
--- NOTE | 2022-06-02 21:29 | ECG_ITS ---
Measurements Intervals [place] Rate: 140 P: 46 MD: 142 QRS: 28 QRSD: 77 T: 18 QT: 280 QTc: 428 Interpretive Statements SINUS OR ECTOPIC ATRIAL TACHYCARDIA BASELINE WANDER- II, III ABNORMAL ECG Electronically Signed On 06-03-2022 8:43:24 CDT by Burt Sosa D.O.
--- NOTE | 2022-06-02 22:06 | ED.GENADULT ---
HPI - General Adult General Chief complaint: Chest Pain Stated complaint: palpations, chest pain Time Seen by Provider: 06/02/22 21:53 History of Present Illness HPI narrative: 32-year-old male presented to the emergency department for evaluation of cute onset of tachycardia. Patient states he was engaged in sexual activity prior to arrival and had onset of rapid heart rate. Patient denies taking medications for tonight. Patient states he is having some left-sided chest pain. Patient states over the last few weeks he has had increased cough and has not been feeling well. Patient did have history of COVID in July 2021. Patient has had a prior hospitalization due to his asthma and while he was admitted the ICU he did develop a clot in his left lower extremity. Patient denies any prior history of PE and does not take any blood thinners. Patient does not feel short of breath at this time. Patient denies any associated nausea vomiting or diarrhea. Patient denies abdominal pain. Patient denies any lower extremity pain or tenderness. Related Data Allergies Allergy/AdvReac Type Severity Reaction Status Date / Time No Known Drug Allergies Allergy Unknown Unknown Verified 06/02/22 22:25 Feathers Allergy Intermediate Unknown Uncoded 06/02/22 22:25 Grass Allergy Unknown Unknown Uncoded 06/02/22 22:25 milk Allergy Unknown Unknown Uncoded 06/02/22 22:25 Review of Systems Review of Systems: CONSTITUTIONAL: See HPI EYES: Denies visual changes, redness, or discharge. ENT: Denies rhinorrhea, congestion, sore throat, or otalgia. CARDIOVASCULAR: See HPI RESPIRATORY: See HPI GASTROINTESTINAL: Denies abdominal pain, nausea, vomiting, or diarrhea. GENITOURINARY: Denies dysuria or hematuria. SKIN: Denies rash or itching. MUSCULOSKELETAL: Denies back pain, joint pain, or myalgia. NEUROLOGIC: Denies headache, numbness, or weakness. [facility] Past Medical History Medical History (Updated 06/03/22 @ 02:10 by Edgard Batista MD) Asthma Cigarette nicotine dependence Hypertension DYLAN on CPAP Overweight Family History Family History Mother Asthma Social History Social History Smoking status: Former smoker Tobacco type: cigarettes and cigars Additional smoking assessment comments: Quit 2019 Alcohol intake: unknown Substance use: never Spiritual care concerns: No Exam Narrative: APPEARANCE: Well appearing, no pain, no distress, well-nourished. HEAD: normocephalic, atraumatic. EYES: PERRLA/EOMI, conjunctivae clear. NOSE: Normal no drainage NECK: Supple. No adenopathy, no masses. RESPIRATORY: Airway patent, respirations nonlabored. Clear to auscultation bilaterally, no rales, rhonchi, wheezing. CARDIOVASCULAR: Tachycardia ABDOMINAL: Soft, nontender, nondistended, normal bowel sounds MUSCULOSKELETAL: Moves all extremities. Strength/ROM intact, No edema, No calf tenderness. NEURO: Alert. Cranial nerves II through XII intact. Grossly intact SKIN: Warm, dry. Normal Color Course Course Emergency Course: Patient had negative serial troponins, EKG shows sinus tachycardia. Patient's heart rate was improved with IV fluids. Prior to discharge patient's heart rate was no longer over 100. CT scan showed no evidence of acute pulmonary embolism. Patient states he does feel improved. Patient is resting comfortably. Patient had negative serial troponins. Patient was afebrile but does have a leukocytosis of 12.0. CMP is within normal limits and COVID was negative. Chest x-ray showed no acute cardiopulmonary normality. Patient was updated on the results of his work-up. All questions answered. Vital Signs Vital signs: Vital Signs Temperature 98.7 F 06/02/22 22:16 Pulse Rate 140 H 06/02/22 22:16 Respiratory Rate 15 06/02/22 22:16 Blood Pressure 141/99 H 06/02/22 22:16 Pulse Oximetry 99 06/02/22 22:16
[2022-06-02 22:16] VITALS: BP 141/99; PULSE 140; RESP 15; TEMP 37.1; O2SAT 99
[2022-06-02 22:22] LABS: Basophils Absolute Auto 0.1 K/mm3 (0.0-0.1); Basophils Percent Auto 0.6 % (0.2-1.2); Eosinophils Absolute Auto 0.1 K/mm3 (0-0.3); Eosinophils Percent Auto 0.9 % (0-4.4); Hematocrit 43.6 % (42.0-52.0); Hemoglobin 14.5 g/dL (14.0-18.0); Immature Granulocyte Absolute 0.05 K/mm3 (0.00-0.031); Immature Granulocyte Percent A 0.4 % (0-0.5); Lymphocytes Absolute Auto 1.54 K/mm3 (0.9-3.2); Lymphocytes Percent Auto 12.9 % (18.3-44.2); Mean Corpuscular HGB Conc 33.3 g/dl (32-36); Mean Corpuscular Hemoglobin 28.4 pg (26-34); Mean Corpuscular Volume 85.5 fl (80-100); Mean Platelet Volume 9.6 fl (7.4-10.4); Monocytes Absolute Auto 1.1 K/mm3 (0.1-0.6); Monocytes Percent Auto 8.9 % (2.6-8.5); Neutrophils Absolute Auto 9.1 K/mm3 (1.3-6.7); Neutrophils Percent Auto 76.3 % (45.5-73.1); Platelet Count Result 269 k/mm3 (150-375); Red Cell Distribution Width 12.6 % (11.5-14.5)
[2022-06-02 22:26] VITALS: PULSE 130
[2022-06-02] MEDS: SODIUM CHLORIDE 0.9% IV 1,000 ML 999 ML IV CONT ×2 (22:27→23:25)
[2022-06-02 22:32] LABS: Alanine Aminotransferase 26 U/L (6-50); Albumin Level 4.5 g/dL (3.5-5.1); Alkaline Phosphatase 84 U/L (38-126); Anion Gap 7 mmol/L (8-16); Aspartate Amino Transferase 23 U/L (17-59); Bilirubin,Total 0.8 mg/dL (0.2-1.3); Blood Urea Nitrogen 13 mg/dL (9-20); Carbon Dioxide 26 mmol/L (22-30); Chloride 106 mmol/L (98-107); Estimated CRCL calculation 118 ml/min; Estimated Glomerular Filt Rate > 60; Glucose 106 mg/dL (65-110); Lipase 44 U/L (23-300); Potassium 4.1 mmol/L (3.4-5.0); Sodium 139 mmol/L (137-145)
[2022-06-02 22:36] LABS: Partial Thromboplastin Time 35.3 SECONDS (22.3-36.8); Prothrombin Time 12.8 Seconds (11.1-14.7)
[2022-06-02 22:43] VITALS: BP 160/106; PULSE 127; RESP 22; O2SAT 96
[2022-06-02 22:44] LABS: Troponin I < 0.012 ng/mL (0.000-0.034)
[2022-06-02 23:01] LABS: SARS-CoV-2 RNA PCR Negative
[2022-06-02 23:31] VITALS: BP 163/88; PULSE 122; RESP 16; O2SAT 99
[2022-06-03 00:09] VITALS: BP 151/98; PULSE 119; RESP 16; O2SAT 97
[2022-06-03] MEDS: SODIUM CHLORIDE 0.9% IV 1,000 ML 999 ML IV CONT (01:06)
[2022-06-03 01:10] VITALS: BP 143/97; PULSE 116; RESP 16; O2SAT 98
[2022-06-03 01:27] LABS: Troponin I < 0.012 ng/mL (0.000-0.034)
[2022-06-03] MEDS: ACETAMINOPHEN 500 MG TABLET 1000 MG PO (02:02)
[2022-06-03 02:13] VITALS: BP 147/91; PULSE 106; RESP 16; O2SAT 99
[2022-06-03] MEDS: ONDANSETRON INJ 4 MG/2 ML VIAL IV PUSH (02:23)
== END 2022-06-03 02:32 | disposition home or self-care (01) ==
PROVIDERS: Emergency Medicine; Emergency Provider Emergency Medicine
DX: I47.1 Supraventricular tachycardia (principal); Z20.822 Contact with and (suspected) exposure to COVID-19; J45.909 Unspecified asthma, uncomplicated; Z86.16 Personal history of COVID-19; I10 Essential (primary) hypertension; G47.33 Obstructive sleep apnea (adult) (pediatric); E66.3 Overweight; Z68.38 Body mass index [BMI] 38.0-38.9, adult; Z87.891 Personal history of nicotine dependence
CPT/HCPCS: 36415; 71046; 71275; 80053; 83690; 84484; 85025; 85610; 85730; 93005; 96361; 96374; 99284; A9270; C9803; J2405; J7030; Q9967; U0003; U0005

== ENCOUNTER 2022-06-08 12:18 | Outpatient (CLI) | payer OTHER, SELFPAY ==
[2022-06-08 12:55] LABS: Cholesterol 191 mg/dL (0-200); HDL Direct 31 mg/dL (40-60); LDL Cholesterol Calculated 122 mg/dL (<130); Triglycerides 191 mg/dL (0-150)
== END 2022-06-08 12:19 | disposition home or self-care (01) ==
LOC: CHSLAB 12:19
PROVIDERS: PCP Family Medicine; Visit Provider Family Medicine
DX: J45.909 Unspecified asthma, uncomplicated (principal); E66.3 Overweight; I10 Essential (primary) hypertension; R00.2 Palpitations; R68.89 Other general symptoms and signs
CPT/HCPCS: 36415; 80061

== ENCOUNTER 2022-06-13 13:15 | Outpatient (CLI) | payer OTHER, SELFPAY ==
--- NOTE | 2022-06-13 13:20 | ECHO_ITS ---
Patient Info Name: Kiko Martines Age: 32 years : 1990 Gender: Male Ht: 66 in Wt: 270 lbs BSA: 2.45 m2 HR: 105 bpm BP: 139 / 96 mmHg Heart Rhythm: Sinus Rhythm Technical Quality: Fair Exam Date: 06/13/2022 1:06 PM Exam Location: [facility] Patient Status: Outpatient Admit Date: 06/13/2022 Staff Ordering Physician: Nikita Miles DO Wharfmaster: Josette Callejas RDCS Attending Provider: Nikita Miles DO Referring Physician: Jd SCHULTE; Exam Type: CA echo doppler color flow Study Info Indications - hypertension Complete two-dimensional, color flow and Doppler transthoracic echocardiogram is performed. Summary 1. Complete two-dimensional, color flow and Doppler transthoracic echocardiogram is performed. 2. Left ventricular chamber dimension is normal. 3. Left ventricular systolic function is normal, estimated at 60-65%. 4. There is mildly increased left ventricular wall thickness. 5. The left ventricular diastolic function is normal. 6. E/e' 7 is not elevated. 7. No pulmonary hypertension, estimated pulmonary arterial systolic pressure is 28 mmHg. Left Ventricle E/e' 7 is not elevated. Left ventricular chamber dimension is normal. Left ventricular systolic function is normal, estimated at 60-65%. There is mildly increased left ventricular wall thickness. The left ventricular diastolic function is normal. Right Ventricle Right ventricular systolic function is normal and with normal TAPSE 1.9 cm. Right ventricular chamber dimension is normal. Left Atria Left atrial chamber dimension is normal. Right Atria Right atrial chamber dimension is normal. Aortic Valve The aortic valve is trileaflet. There is no aortic valve stenosis. There is no aortic valve regurgitation. Pulmonic Valve There is no pulmonic regurgitation. Mitral Valve There is no mitral valve stenosis. There is no mitral valve regurgitation. Tricuspid Valve There is no tricuspid valve regurgitation. No pulmonary hypertension, estimated pulmonary arterial systolic pressure is 28 mmHg. Pericardium/Pleural There is no pericardial effusion. Inferior Vena Cava Normal inferior vena cava with >50% collapse upon inspiration consistent with normal right atrial pressure, 5 mmHg. Aorta The aortic root size at the sinus of Valsalva is normal. Left Ventricular Outflow Tract Name Value Normal LVOT 2D LVOT Diameter 2.0 cm LVOT Doppler LVOT Peak Velocity 93 cm/s LVOT Peak Gradient 3 mmHg LVOT Mean Gradient 2 mmHg LVOT VTI 17 cm LVOT VTI/AV VTI Ratio 0.8 LVOT Stroke Volume 54 ml Pulmonic Valve Name Value Normal RVOT Doppler RVOT Peak Gradient 2 mmHg
--- NOTE | 2022-06-16 11:22 | WPDHOLTEREM ---
Holter/Event Monitor Holter/Event Monitor Date of procedure: 06/16/22 Holter/Event Procedure: 48 Hr Holter Monitor Indications: Palpitations Conclusion: 1. 48 hour holter monitor on 06/15/22 but was worn for 19 hours. 2. Underlying rhythm is sinus rhythm. HR range 44-160 bpm; average HR 89 bpm. HR at 160 was at 14:56. 3. There are 6 premature supraventricular complexes and 1 supraventricular couplet. No supraventricular tachycardia. 4. There are 974 premature ventricular complexes, 1 ventricular couplet and 397 ventricular trigeminy. No ventricular tachycardia. 5. No sinoatrial or atrioventricular blocks. No significant pauses greater than 2 seconds. 6. Patient reports symptoms of palpitations, chest pounding, heart racing which demonstrate sinus rhythm, HR range 69-132 bpm and 1 PVC.
== END 2022-06-13 13:16 | disposition home or self-care (01) ==
LOC: CHSIMG 13:16
PROVIDERS: PCP Family Medicine; Visit Provider Family Medicine
DX: R00.2 Palpitations (principal); I10 Essential (primary) hypertension
CPT/HCPCS: 93225; 93226; 93306

== ENCOUNTER 2022-06-27 09:49 | Outpatient (CLI) | payer OTHER, SELFPAY ==
--- NOTE | 2022-06-27 09:50 | EST_ITS ---
Patient Info Name: Kiko Martines Age: 32 years : 1990 Gender: Male Ht: 66 in Wt: 275 lbs BSA: 2.48 m2 Technical Quality: Good Exam Date: 06/27/2022 10:20 AM Exam Location: [facility] Patient Status: Outpatient Admit Date: 06/27/2022 Staff Ordering Physician: Nikita Miles DO Attending Provider: Nikita Miles DO Exam Type: CA stress test treadmill Study Info A treadmill exercise stress test was performed. History/Risk Factors Obesity: Yes Summary 1. 1. Negative Ced exercise stress test for ischemic ST changes by ECG criteria. 2. 2. Reduced functional capacity, achieving 7 METs of workload. 3. 3. Frequent ventricular ectopics with exercise. 4. 4. Appropriate HR response to exercise. 5. 5. Appropriate HR recovery at 1 minute post exercise. 6. 6. Hypertensive response to exercise. 7. 7. No imaging with stress testing. Protocol: Ced Stress ECG Details Stage: REST Duration (min): 0 min : 53 sec Speed (mph): 0.0 Grade (%): 0 HR (bpm): 89 SBP (mmHg): 131 DBP (mmHg): 80 METS: --- Stage: REST Duration (min): 2 min : 56 sec Speed (mph): 0.0 Grade (%): 0 HR (bpm): 106 SBP (mmHg): 131 DBP (mmHg): 80 METS: --- Stage: STAGE 1 Duration (min): 1 min : 0 sec Speed (mph): 1.7 Grade (%): 10 HR (bpm): 123 SBP (mmHg): 131 DBP (mmHg): 80 METS: --- Stage: STAGE 1 Duration (min): 2 min : 0 sec Speed (mph): 1.7 Grade (%): 10 HR (bpm): 139 SBP (mmHg): 131 DBP (mmHg): 80 METS: --- Stage: STAGE 1 Duration (min): 3 min : 0 sec Speed (mph): 1.7 Grade (%): 10 HR (bpm): 143 SBP (mmHg): 165 DBP (mmHg): 90 METS: --- Stage: STAGE 2 Duration (min): 1 min : 0 sec Speed (mph): 2.5 Grade (%): 12 HR (bpm): 157 SBP (mmHg): 165 DBP (mmHg): 90 METS: --- Stage: STAGE 2 Duration (min): 2 min : 0 sec Speed (mph): 2.5 Grade (%): 12 HR (bpm): 168 SBP (mmHg): 165 DBP (mmHg): 90 METS: --- Stage: STAGE 2 Duration (min): 3 min : 0 sec Speed (mph): 2.5 Grade (%): 12 HR (bpm): 172 SBP (mmHg): 177 DBP (mmHg): 87 METS: --- Stage: STAGE 3 Duration (min): 0 min : 23 sec Speed (mph): 3.4 Grade (%): 14 HR (bpm): 180 SBP (mmHg): 177 DBP (mmHg): 87 METS: --- Stage: RECOVERY Duration (min): 0 min : 36 sec Speed (mph): 0.0 Grade (%): 0 HR (bpm): 176 SBP (mmHg): 177 DBP (mmHg): 87 METS: --- Stage: RECOVERY Duration (min): 1 min : 36 sec Speed (mph): 0.0 Grade (%): 0 HR (bpm): 149 SBP (mmHg): 177 DBP (mmHg): 87 METS: --- Stage: RECOVERY Duration (min): 2 min : 36 sec Speed (mph): 0.0 Grade (%): 0 HR (bpm): 136 SBP (mmHg): 216 DBP (mmHg): 76 METS: --- Stage: RECOVERY Duration (min): 3 min : 36 sec Speed (mph)
== END 2022-06-27 09:50 | disposition home or self-care (01) ==
LOC: CHSCARD 09:50
PROVIDERS: PCP Family Medicine; Visit Provider Family Medicine
DX: R68.89 Other general symptoms and signs (principal)
CPT/HCPCS: 93017

== ENCOUNTER 2022-12-11 11:26 | Emergency (ER) | payer OTHER, SELFPAY ==
[2022-12-11 11:34] VITALS: BP 134/88; PULSE 116; RESP 16; TEMP 38.3; O2SAT 99
--- NOTE | 2022-12-11 11:46 | ED.URI ---
HPI - URI/Sore Throat General Chief Complaint: Upper Respiratory Infection Stated Complaint: cold sx Time Seen by Provider: 12/11/22 11:46 Source: patient, RN notes reviewed and old records reviewed Mode of arrival: ambulatory Limitations: no limitations History of Present Illness HPI Narrative: 32-year-old male presents to the [facility] complaints of fever, congestion, sore throat since yesterday. Also reports headache and nasal congestion. Took TheraFlu ibuprofen 1 time yesterday when symptoms started, nothing today. Related Data Home Medications Medication Instructions Recorded Confirmed albuterol sulfate 90 mcg/actuation 1 puff inhalation Q4H PRN sob 06/08/22 12/11/22 aerosol inhaler (ProAir HFA) Allergies Allergy/AdvReac Type Severity Reaction Status Date / Time No Known Drug Allergies Allergy Unknown Unknown Verified 12/11/22 11:37 Feathers Allergy Intermediate Unknown Uncoded 12/11/22 11:37 Grass Allergy Unknown Unknown Uncoded 12/11/22 11:37 milk Allergy Unknown Unknown Uncoded 12/11/22 11:37 Review of Systems Review of Systems: All systems reviewed & are unremarkable except as noted in HPI and below Constitutional: Constitutional: Reports as per HPI, Reports chills, Reports fatigue and Reports fever(s) Eyes: Eyes: Reports no additional eye complaints ENT: Reports as per HPI and Reports sore throat Cardiovascular: Cardiovascular: Reports no additional cardiovascular complaints, Denies chest pain and Denies dyspnea Respiratory: Respiratory: Reports as per HPI, Denies chest congestion, Reports cough and Denies dyspnea Gastrointestinal: Gastrointestinal: Reports no additional gastrointestinal complaints, Denies abdominal pain, Denies nausea and Denies vomiting Musculoskeletal: Musculoskeletal: Reports no additional musculoskeletal complaints Integumentary/Breasts: Skin/Breast: Reports system reviewed and no additional complaints, except as docu Neurologic: Reports system reviewed and no additional complaints, except as documented Psychiatric: Psychiatric: Reports no additional psychiatric complaints Allergic/Immunologic: Allergic/Immunologic: Reports no additional allergic/immunologic complaints PMFSH Past Medical History Medical History Asthma Cigarette nicotine dependence Hypertension DYLAN on CPAP Overweight Family History Family History Mother Asthma Social History Social History Smoking status: Former smoker Tobacco type: cigarettes and cigars Additional smoking assessment comments: Quit 2019 Alcohol intake: unknown Substance use: never Spiritual care concerns: No Comments At the time of my signature, I reviewed and agree with the nursing past medical, surgical, social, and family history. There is no relevant family history pertinent to the patient complaint. Exam Const: General: cooperative, healthy appearing, comfortable, no acute distress, well developed, alert and well nourished Nutritional Appearance: well nourished Orientation/consciousness: patient oriented x3 Limitations: no limitations HENMT: Head: normal to inspection Ears: hearing grossly normal bilaterally and external ears normal Face/Nose/Sinus: Normal external nose present, Normal nares present, Normal nasal mucous membranes and turbinates present and normal facial exam Face and sinus: normal facial exam Mouth: Yes Normal oral and palatal mucosa present, Yes lip normal and Yes moist mucous membranes Throat: uvula midline, abnormal tonsil bilateral erythema and hypertrophy, posterior oropharynx abnormal erythema; no exudates and uvular edema Eyes: General: appearance normal, both eyes and all related structures Alignment and Position: alignment normal Periorbital: periorbital findings normal Conjunctivae: conjunctivae normal Pupils: Eq
[2022-12-11 11:55] VITALS: TEMP 38.3
[2022-12-11] MEDS: ACETAMINOPHEN 500 MG TABLET 1000 MG PO (11:55)
== END 2022-12-11 12:22 | disposition home or self-care (01) ==
PROVIDERS: Emergency Provider Nurse Practitioner
DX: J03.90 Acute tonsillitis, unspecified (principal); K12.2 Cellulitis and abscess of mouth; Z20.822 Contact with and (suspected) exposure to COVID-19; Z87.891 Personal history of nicotine dependence; J45.909 Unspecified asthma, uncomplicated; I10 Essential (primary) hypertension; G47.33 Obstructive sleep apnea (adult) (pediatric)
CPT/HCPCS: 87081; 87426; 87804; 87880; 99213; A9270; C9803; G0463

== ENCOUNTER 2023-07-09 13:04 | Emergency (ER) | payer SELFPAY ==
[2023-07-09 13:15] VITALS: BP 152/95; PULSE 116; RESP 16; TEMP 37.2; O2SAT 98
--- NOTE | 2023-07-09 13:38 | ED.URI ---
HPI - URI/Sore Throat General Chief Complaint: Upper Respiratory Infection Stated Complaint: cough,congestion,body aches Time Seen by Provider: 07/09/23 13:39 Source: patient Mode of arrival: ambulatory Limitations: no limitations History of Present Illness HPI Narrative: 33 y/o male with a history of asthma presented for c/o cough x3 weeks. States cough is productive of white sputum. States he cannot rest due to the frequency of the cough. Taking Mucinex and Afrin for symptoms. Took negative home covid test today. he denies shortness of breath, wheezing, chest pain, dizziness, nausea, vomiting, fevers or chills. Related Data Home Medications Medication Instructions Recorded Confirmed albuterol sulfate 90 mcg/actuation 1 puff inhalation Q4H PRN sob 06/08/22 07/09/23 aerosol inhaler (ProAir HFA) Allergies Allergy/AdvReac Type Severity Reaction Status Date / Time No Known Drug Allergies Allergy Unknown Unknown Verified 07/09/23 13:08 Feathers Allergy Intermediate Unknown Uncoded 07/09/23 13:08 Grass Allergy Unknown Unknown Uncoded 07/09/23 13:08 milk Allergy Unknown Unknown Uncoded 07/09/23 13:08 Review of Systems Review of Systems: CONSTITUTIONAL: Denies body aches, fever, chills, or sweats. EYES: Denies visual changes, redness, or discharge. ENT: Denies rhinorrhea, congestion, sore throat, or otalgia. CARDIOVASCULAR: Denies chest pain, palpitations, or edema. RESPIRATORY: Reports cough, Denies sob, wheezing. GASTROINTESTINAL: Denies abdominal pain, nausea, vomiting, or diarrhea. GENITOURINARY: Denies dysuria or hematuria. SKIN: Denies rash, itching, or wounds. MUSCULOSKELETAL: Denies back pain, joint pain, or myalgia. NEUROLOGIC: Denies headache, numbness, tingling, or weakness. All systems reviewed & are unremarkable except as noted in HPI and below PMFSH Past Medical History Medical History Asthma Cigarette nicotine dependence Hypertension DYLAN on CPAP Overweight Family History Family History Mother Asthma Social History Social History Smoking status: Former smoker Tobacco type: cigarettes and cigars Additional smoking assessment comments: Quit 2019 Alcohol intake: unknown Substance use: never Spiritual care concerns: No Comments At time of signature, I have reviewed and agree with nursing past medical, surgical, social and family history unless otherwise noted. Please see nursing chart for further information. There is no relevant family history pertinent to the presenting complaint Exam Narrative: GENERAL: Well-appearing, in no acute distress. EYES: EOMI. No redness or drainage. Conjunctivae normal. ENT: Mucous membranes pink and moist. Nasal congestion. TMs normal bilaterally. Throat normal. Uvula midline. NECK: Normal AROM. Supple. CHEST: No respiratory distress. Lungs clear throughout. Frequent moist harsh cough. HEART: Regular rate and rhythm. No murmur appreciated. ABDOMEN: Soft, nontender, nondistended, normal active bowel sounds. EXTREMITIES: Normal range of motion. No edema. SKIN: Warm, dry, no rash. Capillary refill normal. Normal skin turgor. NEURO: Alert and oriented x3. Gait steady. PSYCH: Normal affect. Course Course Emergency Course: Patient is aware of diagnosis, understands and agrees to treatment plan. Anticipatory guidance given. Patient agrees to follow-up as directed and is aware of reasons to seek care at the emergency department. Portions of this record may have been created with voice recognition software Level of Care: Express Care Visit Vital Signs Vital signs: Vital Signs Temperature 99.0 F 07/09/23 13:15 Pulse Rate 116 H 07/09/23 13:15 Respiratory Rate 16 07/09/23 13:15 Blood Pressure 152/95 H 07/09/23 13:15 Pulse Oximetry 98 08/
== END 2023-07-09 13:55 | disposition home or self-care (01) ==
PROVIDERS: Emergency Provider Nurse Practitioner Family; PCP Family Medicine
DX: R05.9 Cough, unspecified (principal); J40 Bronchitis, not specified as acute or chronic; Z87.891 Personal history of nicotine dependence; J45.909 Unspecified asthma, uncomplicated; I10 Essential (primary) hypertension; G47.33 Obstructive sleep apnea (adult) (pediatric)
CPT/HCPCS: 99213; G0463

== ENCOUNTER 2023-07-10 19:14 | Emergency (ER) | payer SELFPAY ==
[2023-07-10] VITALS (9 sets, daily range): BP systolic 139–156; BP diastolic 80–123; PULSE 77–121; RESP 18–22; TEMP 36.6–37.2; O2SAT 96–99
--- NOTE | ~2023-07-10 | XR_ITS ---
EXAMINATION: XR chest 2V DATE: 07/10/2023 20:06 INDICATION: Cough. TECHNIQUE: Frontal and lateral views of the chest were obtained. COMPARISON: Chest 2 views 06/02/2022, chest CT 06/02/2022 FINDINGS: There is no pneumonia, pleural effusion, or pneumothorax. The heart size is normal. IMPRESSION: 1. No acute cardiopulmonary disease. Reviewed, dictated and finalized at location E.
--- NOTE | 2023-07-10 19:21 | ED.ASTHMA ---
HPI - Asthma General Chief Complaint: Asthma Stated Complaint: Cough Source: patient Mode of arrival: ambulatory Limitations: no limitations History of Present Illness HPI Narrative: 33 year old male presents to the Emergency Department complaining of cough, difficulty breathing. Onset 3 weeks ago, getting worse. Was seen at [facility] yesterday and diagnosed with bronchitis. He was prescribed Augmentin, tessalon perles, cough syrup with codeine and prednisone. Quit smoking 4 years ago. No fever, nausea, vomiting. Cough non-productive. MD complaint: shortness of breath and other (uncontrollable cough) Onset (ago): week(s) (3) Severity: severe Context: none known Associated symptoms: dry cough Asthma History: adult onset Related Data Current Asthma Therapy: none Allergies Allergy/AdvReac Type Severity Reaction Status Date / Time No Known Drug Allergies Allergy Unknown Unknown Verified 07/09/23 13:08 Feathers Allergy Intermediate Unknown Uncoded 07/09/23 13:08 Grass Allergy Unknown Unknown Uncoded 07/09/23 13:08 milk Allergy Unknown Unknown Uncoded 07/09/23 13:08 Review of Systems Review of Systems: All systems reviewed & are unremarkable except as noted in HPI and below Constitutional: Constitutional: Reports as per HPI, Reports no additional constitutional complaints, Denies chills and Denies fever(s) Eyes: Eyes: Reports as per HPI and Reports no additional eye complaints ENT: Reports system reviewed and no additional complaints, except as documented Cardiovascular: Cardiovascular: Reports as per HPI and Reports no additional cardiovascular complaints Respiratory: Respiratory: Reports as per HPI, Reports no additional respiratory complaints, Reports cough, Reports dyspnea and Reports wheezing Gastrointestinal: Gastrointestinal: Reports as per HPI, Denies diarrhea, Denies nausea and Denies vomiting Genitourinary: Genitourinary: Reports no additional male genitourinary complaints Musculoskeletal: Musculoskeletal: Reports no additional musculoskeletal complaints Integumentary/Breasts: Skin/Breast: Reports system reviewed and no additional complaints, except as docu Neurologic: Reports system reviewed and no additional complaints, except as documented Psychiatric: Psychiatric: Reports no additional psychiatric complaints Endocrine: Endocrine: Reports no additional endocrine complaints Hematologic/Lymphatic: Hematologic/Lymphatic: Reports no additional hematologic/lymphatic complaints Allergic/Immunologic: Allergic/Immunologic: Reports no additional allergic/immunologic complaints [facility] Past Medical History Medical History (Updated 07/10/23 @ 21:54 by Noah Kothari MD) Asthma Cigarette nicotine dependence Hypertension DYLAN on CPAP Overweight Family History Family History Mother Asthma Social History Social History Smoking status: Former smoker Tobacco type: cigarettes and cigars Additional smoking assessment comments: Quit 2019 Alcohol intake: unknown Substance use: never Spiritual care concerns: No Exam Const: General: ill appearing Nutritional Appearance: obese Orientation/consciousness: patient oriented x3 Limitations: no limitations HENMT: Head: normal to inspection Ears: external ears normal Face/Nose/Sinus: Normal external nose present Face and sinus: normal facial exam Mouth: Yes Normal oral and palatal mucosa present Teeth and gingiva: dentition normal Throat: posterior oropharynx normal Eyes: Conjunctivae: conjunctivae normal Pupils: Equal, round and reactive pupils present EOM: EOMs intact bilaterally Direct Ophthalmoscopy: no photophobia Neck: Neck: normal visual inspection Chest: Chest palpation & inspection: normal inspection of the chest Resp: Effort & Inspection: tachypneic Auscultation: rhonchi and wheezes Cardio: Rate: regular rate
[2023-07-10] MEDS: methylPREDNISolone SOD SUCC 125 MG VIAL IV PUSH (19:36)
[2023-07-10] MEDS: IPRATROPIUM 0.5 MG/ALBUTEROL SULFATE 2.5 MG AMPUL.NEB 3 ML INHALATION (19:37)
[2023-07-10] MEDS: fentaNYL CITRATE INJ (*CRX) 100 MCG/2 ML VIAL 50 MCG IV PUSH (20:22)
[2023-07-10] MEDS: ALBUTEROL SULFATE NEB 2.5 MG/3 ML INH 10 MG INHALATION (20:23)
== END 2023-07-10 22:01 | disposition home or self-care (01) ==
PROVIDERS: Emergency Provider Emergency Medicine
DX: J45.909 Unspecified asthma, uncomplicated (principal); I10 Essential (primary) hypertension; Z87.891 Personal history of nicotine dependence
CPT/HCPCS: 71046; 94640; 96374; 96375; 99284; J2930; J3010

== ENCOUNTER 2023-10-04 18:33 | Emergency (ER) | payer SELFPAY ==
[2023-10-04 18:41] VITALS: BP 144/95; PULSE 125; RESP 16; TEMP 38.6; O2SAT 99
--- NOTE | 2023-10-04 18:51 | ED.URI ---
HPI - URI/Sore Throat General Chief Complaint: Upper Respiratory Infection Stated Complaint: fever,sore throat Time Seen by Provider: 10/04/23 18:52 History of Present Illness HPI Narrative: 33-year-old male presented for complaint of sore throat and fever. Onset today. States he left work when he checked his temperature and it was 101.4 . taking Tylenol and ibuprofen. Denies sick contacts. Denies shortness of breath, wheezing, nausea, vomiting or diarrhea. Related Data Allergies Allergy/AdvReac Type Severity Reaction Status Date / Time No Known Drug Allergies Allergy Unknown Unknown Verified 10/04/23 18:39 Feathers Allergy Intermediate Unknown Uncoded 10/04/23 18:39 Grass Allergy Unknown Unknown Uncoded 10/04/23 18:39 milk Allergy Unknown Unknown Uncoded 10/04/23 18:39 Review of Systems Review of Systems: CONSTITUTIONAL: reports body aches, fever, chills EYES: Denies visual changes, redness, or discharge. ENT: Reports sore throat Denies rhinorrhea, congestion, or otalgia. CARDIOVASCULAR: Denies chest pain, palpitations, or edema. RESPIRATORY: Denies dyspnea. GASTROINTESTINAL: Denies abdominal pain, nausea, vomiting, or diarrhea. SKIN: Denies rash, itching, or wounds. MUSCULOSKELETAL: Denies back pain, joint pain, or myalgia. NEUROLOGIC: Denies headache PMFSH Past Medical History Medical History Asthma Cigarette nicotine dependence Hypertension DYLAN on CPAP Overweight Family History Family History Mother Asthma Social History Social History Smoking status: Former smoker Tobacco type: cigarettes and cigars Additional smoking assessment comments: Quit 2019 Alcohol intake: unknown Substance use: never Spiritual care concerns: No Exam Narrative: GENERAL: mildly Ill-appearing, no acute distress. EYES: conjunctivae clear ENT: Mucous membranes moist. TMs pearly vanegas with normal light reflex bilaterally; no tragal tenderness. Oropharynx severely erythematous Tonsils enlarged 3+ without exudate. guarding voice. No drooling, no hoarseness, no trismus, uvula midline. No tripod positioning, hot potato voice, or soft palate swelling. NECK: Supple. No lymphadenopathy CHEST: Clear to auscultation, breath sounds equal. No respiratory distress, speaks in full sentences. HEART: Regular rate and rhythm. No murmur heard. SKIN: Warm, dry, no rash. NEURO: Alert and oriented x3. Course Course Emergency Course: Patient is aware of diagnosis, understands and agrees to treatment plan. Anticipatory guidance given. Patient agrees to follow-up as directed and is aware of reasons to seek care at the emergency department. Portions of this record may have been created with voice recognition software Level of Care: Express Care Visit Vital Signs Vital signs: Vital Signs Temperature 101.4 F H 10/04/23 18:41 Pulse Rate 125 H 10/04/23 18:41 Respiratory Rate 16 10/04/23 18:41 Blood Pressure 144/95 H 10/04/23 18:41 Pulse Oximetry 99 10/04/23 18:41 Oxygen Delivery Room Air 10/04/23 18:41 Temperature 101.4 F H 10/04/23 18:41 Pulse Rate 125 H 10/04/23 18:41 Respiratory Rate 16 10/04/23 18:41 Blood Pressure 144/95 H 10/04/23 18:41 Pulse Oximetry 99 10/04/23 18:41 Oxygen Delivery Room Air 10/04/23 18:41 MDM - URI/Sore Throat MDM Narrative Medical decision making narrative: POS strep result reviewed with pt. Advise supportive treatments. Patient is appropriate for outpatient treatment and follow-up. Differential Diagnosis Differential diagnosis: Likely upper respiratory infection, viral infection and pharyngitis Discharge Plan Discharge Clinical Impression: Strep pharyngitis Patient Disposition: Home, Self-Care Condition: Stable Instructions: Antibiotic Form, Strep Throat (ED)
== END 2023-10-04 19:00 | disposition home or self-care (01) ==
PROVIDERS: Emergency Provider Nurse Practitioner Family
DX: J02.0 Streptococcal pharyngitis (principal); Z87.891 Personal history of nicotine dependence; J45.909 Unspecified asthma, uncomplicated; I10 Essential (primary) hypertension; G47.33 Obstructive sleep apnea (adult) (pediatric)
CPT/HCPCS: 87880; 99213; G0463

== ENCOUNTER 2023-10-13 11:09 | Emergency (ER) | payer SELFPAY ==
[2023-10-13 11:20] VITALS: BP 139/91; PULSE 108; RESP 16; TEMP 36.9; O2SAT 97
--- NOTE | 2023-10-13 11:58 | ED.URI ---
HPI - URI/Sore Throat General Chief Complaint: Upper Respiratory Infection Stated Complaint: Cough/SOB Time Seen by Provider: 10/13/23 11:51 Source: patient, RN notes reviewed and old records reviewed Mode of arrival: ambulatory Limitations: no limitations History of Present Illness HPI Narrative: Patient presents today with a 7 day history of severe cough that is causing decreased sleep, shortness of breath with exertion. Patient is on day 10 of Augmentin for strep throat and states his strep throat symptoms have fully resolved. History of asthma. He has been taking Mucinex without much relief. He has not been using his albuterol inhaler. Works at a [employer] Related Data Allergies Allergy/AdvReac Type Severity Reaction Status Date / Time No Known Drug Allergies Allergy Unknown Unknown Verified 10/13/23 11:17 Feathers Allergy Intermediate Unknown Uncoded 10/04/23 18:39 Grass Allergy Unknown Unknown Uncoded 10/04/23 18:39 milk Allergy Unknown Unknown Uncoded 10/04/23 18:39 Review of Systems Review of Systems: CONSTITUTIONAL: Denies body aches, fever, chills, or sweats. EYES: Denies visual changes, redness, or discharge. ENT: Denies rhinorrhea, congestion, sore throat, or otalgia. CARDIOVASCULAR: Denies chest pain, palpitations, or edema. RESPIRATORY:+ cough, shortness of breath with exertion GASTROINTESTINAL: Denies abdominal pain, nausea, vomiting, or diarrhea. GENITOURINARY: Denies dysuria or hematuria. SKIN: Denies rash, itching, or wounds. MUSCULOSKELETAL: Denies back pain, joint pain, or myalgia. NEUROLOGIC: Denies headache, numbness, tingling, or weakness. PSYCH: Denies depression or anxiety. [facility] Past Medical History Medical History (Updated 10/13/23 @ 12:01 by Reanna Bazzi, [facility], ) Asthma Cigarette nicotine dependence Hypertension DYLAN on CPAP Overweight Family History Family History Mother Asthma Social History Social History Smoking status: Former smoker Tobacco type: cigarettes and cigars Additional smoking assessment comments: Quit 2019 Alcohol intake: unknown Substance use: never Spiritual care concerns: No Comments Reviewed Exam Narrative: GENERAL: Mildly ill-appearing, well-nourished, and in no acute distress. HEAD: Normocephalic, atraumatic. EYES: EOMI. No redness or drainage. Conjunctivae normal. ENT: Mucous membranes pink and moist. Nares clear. No rhinorrhea. TMs normal bilaterally. Throat normal. Uvula midline. NECK: Normal AROM. Supple. No lymphadenopathy. CHEST: No respiratory distress. Clear to auscultation. Severe harsh cough noted HEART: Regular rate and rhythm. No murmur appreciated. EXTREMITIES: Normal range of motion. No edema. SKIN: Warm, dry, no rash. Capillary refill normal. Normal skin turgor. NEURO: No focal deficits. Alert and oriented x3. Gait steady. PSYCH: Normal affect. No signs of depression or anxiety. Course Course Level of Care: Express Care Visit Vital Signs Vital signs: Vital Signs Temperature 98.5 F 10/13/23 11:20 Pulse Rate 108 H 10/13/23 11:20 Respiratory Rate 16 10/13/23 11:20 Blood Pressure 139/91 H 10/13/23 11:20 Pulse Oximetry 97 10/13/23 11:20 Oxygen Delivery Room Air 10/13/23 11:20 Temperature 98.5 F 10/13/23 11:20 Pulse Rate 108 H 10/13/23 11:20 Respiratory Rate 16 10/13/23 11:20 Blood Pressure 139/91 H 10/13/23 11:20 Pulse Oximetry 97 10/13/23 11:20 Oxygen Delivery Room Air 10/13/23 11:20 Reviewed MDM - URI/Sore Throat MDM Narrative Medical decision making narrative: Patient will be treated for bronchitis with prednisone and Cheratussin. He has also been instructed to use his albuterol inhaler for severe coughing episodes and any shortness of breath episodes he may experience to see if this is helpful. Differential Diagnosis Differential diagnosis
== END 2023-10-13 12:10 | disposition home or self-care (01) ==
PROVIDERS: Emergency Provider Nurse Practitioner
DX: J40 Bronchitis, not specified as acute or chronic (principal); J45.909 Unspecified asthma, uncomplicated; I10 Essential (primary) hypertension; G47.33 Obstructive sleep apnea (adult) (pediatric)
CPT/HCPCS: 99213; G0463

== ENCOUNTER 2023-12-18 12:30 | Emergency (ER) | payer SELFPAY ==
[2023-12-18 12:40] VITALS: BP 160/99; PULSE 82; RESP 16; TEMP 36.8; O2SAT 100
--- NOTE | 2023-12-18 13:10 | ED.URI ---
HPI - URI/Sore Throat General Chief Complaint: Upper Respiratory Infection Stated Complaint: COVID + 12/09/2023, dizzy,ear issue,cough Time Seen by Provider: 12/18/23 13:10 Source: patient Mode of arrival: ambulatory Limitations: no limitations History of Present Illness HPI Narrative: 33-year-old male presents with complaint of nasal congestion, sinus pressure, right ear pain, fatigue, cough and postnasal drainage for 11 days. Patient reports taking Mucinex without relief of symptoms. Tested positive for COVID 10 days ago. All systems reviewed and negative except as noted above. Related Data Allergies Allergy/AdvReac Type Severity Reaction Status Date / Time No Known Drug Allergies Allergy Unknown Unknown Verified 10/13/23 11:17 Feathers Allergy Intermediate Unknown Uncoded 10/04/23 18:39 Grass Allergy Unknown Unknown Uncoded 10/04/23 18:39 milk Allergy Unknown Unknown Uncoded 10/04/23 18:39 Review of Systems Review of Systems: CONSTITUTIONAL: Denies fever, chills, or sweats. EYES: Denies visual changes, redness, or discharge. ENT: Reports rhinorrhea, congestion, right ear pain. Drainage sore throat CARDIOVASCULAR: Denies chest pain, palpitations, or edema. RESPIRATORY: reports cough. Denies dyspnea. GASTROINTESTINAL: Denies abdominal pain, nausea, vomiting, or diarrhea. GENITOURINARY: Denies dysuria or hematuria. SKIN: Denies rash or itching. MUSCULOSKELETAL: Denies back pain, joint pain, or myalgia. NEUROLOGIC: Denies headache, numbness, or weakness. PSYCHIATRIC: Denies anxiety or depression. All other systems reviewed are negative, except as documented in HPI. [facility] Past Medical History Medical History (Updated 12/18/23 @ 13:25 by Nyla Edwards NP) Asthma Cigarette nicotine dependence Hypertension DYLAN on CPAP Overweight Family History Family History Mother Asthma Social History Social History Smoking status: Former smoker Tobacco type: cigarettes and cigars Additional smoking assessment comments: Quit 2019 Alcohol intake: unknown Substance use: never Spiritual care concerns: No Comments At time of signature, agree with nursing past medical, surgical, social and family history. There is no relevant family history pertinent to the presenting complaint. Exam Narrative: GENERAL: This is a well-nourished, well-developed patient, in no apparent distress. HEAD: normocephalic, atraumatic. EYES: PERRL. Sclera clear/white. Vision is grossly intact. EARS: External ears normal, auditory canals clear and without drainage, fluid bilateral TMs without erythema or perforation. Hearing grossly intact. NOSE: External nose normal with Moderate nasal congestion, erythema and swelling to bilateral nares, bilateral sinus tenderness on palpation. THROAT: Mucous membranes moist, Erythema postnasal drainage NECK: Neck supple, non-tender without lymphadenopathy, masses or thyromegaly. CARDIOVASCULAR: Regular rate and rhythm without murmurs, gallops, or rubs. RESPIRATORY: Clear to auscultation. Breath sounds equal bilaterally. No wheezes, rales, or rhonchi. SKIN: warm, Dry, intact with no suspicious lesions or rash, good texture and turgor. NEURO: awake, alert, and oriented to person, place and time. There were no obvious focal neurologic abnormalities. EXTREMITIES: No joint tenderness, effusion, or edema noted. Course Course Level of Care: Express Care Visit Vital Signs Vital signs: Vital Signs Temperature 36.8 C 12/18/23 12:40 Pulse Rate 82 12/18/23 12:40 Respiratory Rate 16 12/18/23 12:40 Blood Pressure 160/99 H 12/18/23 12:40 Pulse Oximetry 100 12/18/23 12:40 Oxygen Delivery Room Air 12/18/23 12:40 Temperature 36.8 C 12/18/23 12:40 Pulse Rate 82 12/18/23 12:40 Respiratory Rate 16 12/18/23 12:40 Blood Pressure 152/100 H 12/18/23 13
[2023-12-18 13:20] VITALS: BP 152/100
== END 2023-12-18 13:27 | disposition home or self-care (01) ==
PROVIDERS: Emergency Provider Nurse Practitioner Family
DX: J01.90 Acute sinusitis, unspecified (principal); I10 Essential (primary) hypertension; J45.909 Unspecified asthma, uncomplicated; Z87.891 Personal history of nicotine dependence; G47.33 Obstructive sleep apnea (adult) (pediatric)
CPT/HCPCS: 99213; G0463

== ENCOUNTER 2024-10-09 18:39 | Emergency (ER) | payer SELFPAY ==
[2024-10-09 18:42] VITALS: BP 163/89; PULSE 116; RESP 18; TEMP 38.2; O2SAT 96
--- NOTE | 2024-10-09 18:43 | ED_ITS ---
HPI - URI/Sore Throat General Chief Complaint: Upper Respiratory Infection Stated Complaint: Sore Throat Time Seen by Provider: 10/09/24 18:45 Source: patient Mode of arrival: ambulatory Limitations: no limitations History of Present Illness HPI Narrative: Kiko is a 34-year-old male patient presenting to the clinic today with complaints of sore throat, fever, and body aches. Temperature today is 38.2? C in the clinic today. Reports that this just started last night. States his father along was seen yesterday and tested positive for strep. MD elicited complaint: fever, sore throat and other (Body aches) Related Data Allergies Allergy/AdvReac Type Severity Reaction Status Date / Time No Known Drug Allergies Allergy Unknown Unknown Verified 10/09/24 18:46 Feathers Allergy Intermediate Unknown Uncoded 10/09/24 18:46 Grass Allergy Unknown Unknown Uncoded 10/09/24 18:46 milk Allergy Unknown Unknown Uncoded 10/09/24 18:46 Review of Systems Review of Systems: Pertinent positives per HPI. Patient denies any fever, chills, rash, headache, visual changes, dizziness, cough, shortness of breath, chest pain, palpitations, nausea, vomiting, diarrhea, constipation, abdominal pain, or any urinary issues. PMFSH Past Medical History Medical History Asthma Cigarette nicotine dependence Hypertension DYLAN on CPAP Overweight Family History Family History Mother Asthma Social History Social History Smoking status: Former smoker Tobacco type: cigarettes and cigars Additional smoking assessment comments: Quit 2019 Alcohol intake: unknown Substance use: never Spiritual care concerns: No Comments At the time of my signature, I reviewed and agree with the nursing past medical, surgical, social, and family history. There is no relevant family history pertinent to the patient complaint. Exam Narrative: General: Well-developed, well nourished, in no apparent distress Head: Normocephalic, atraumatic Eyes: Pupils equally round and reactive to light bilaterally, EOM intact, sclera and conjunctive clear, no discharge, lids normal Ears: TMs intact and clear, ear canals clear, no drainage, grossly hearing normal. Nose: Nares patent, no discharge, no inflammation, no sinus tenderness. Mouth: Oral pharynx red with bilateral tonsillar enlargement without lesions or masses, good dentition, MMM. Neck: Supple, trachea midline, enlargement of anterior cervical nodes, no thyroid masses or goiter palpable. Cardio: Regular rate and rhythm, s1 and s2 normal, no murmur appreciated. Resp: Clear to auscultation bilaterally, no rhonchi, rales, wheezing or rubs Course Course Emergency Course: Portions of this record may have been created with voice recognition software. Level of Care: Express Care Visit Vital Signs Vital signs: Vital Signs Temperature 38.2 C H 10/09/24 18:42 Pulse Rate 116 H 10/09/24 18:42 Respiratory Rate 18 10/09/24 18:42 Blood Pressure 163/89 H 10/09/24 18:42 Pulse Oximetry 96 10/09/24 18:42 Oxygen Delivery Room Air 10/09/24 18:42 Temperature 38.2 C H 10/09/24 18:42 Pulse Rate 116 H 10/09/24 18:42 Respiratory Rate 18 10/09/24 18:42 Blood Pressure 163/89 H 10/09/24 18:42 Pulse Oximetry 96 10/09/24 18:42 Oxygen Delivery Room Air 10/09/24 18:42 Vital signs reviewed MDM - URI/Sore Throat MDM Narrative Medical decision making narrative: At the time of visit patient is resting comfortably on the exam table. Patient appears to be nontoxic. Labs: Strep test was positive in the clinic today. Plan: Strep test was positive. Will place patient on amoxicillin. Supportive measures were discussed with the patient and they voiced understanding discharge instructions and agrees to treatment plan. Return precautions reviewed Differential Diagnosis Differential diagnosis: Likely upper respiratory infection, otitis media, sinusitis, viral infection, bronchitis, influenza, pharyngitis and other (COVID) Lab Data Labs: Lab Results 10/09/24 Range/Units 18:58 POC Grp A Strep Screen Positive (Negative) Discharge Plan Discharge Clinical Impression: Strep pharyngitis Patient Disposition: Home, Self-Care Condition: Stable Instructions: Antibiotic Form, Strep Throat (ED) Additional Instructions: Strep test was positive in the clinic today. Change your toothbrush in 24 hours after initiation of the antibiotics Take prescription medications only as prescribed-amoxicillin Increase fluids and stay well hydrated Tylenol/motrin for pain/fever Flonase and OTC antihistamines as directed Vicks vapor rub to open sinuses Sinus rinses for congestion Cepacol spray, cough drops, throat lozenges, warm tea with honey/lemon, gargle salt water to soothe throat BRAT diet for diarrhea Clear liquids x 24 hours then advance as tolerated for nausea/vomiting Go to the ED if you develop a worsening in your condition- high fever not controlled by Tylenol or Motrin, dehydration, weakness, lethargy, shortness of breath, or chest pain. Follow up with your PCP in 3-5 days if symptoms persist. 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
[2024-10-09 19:00] LABS: EDSTREPNEGPOS1 Positive (Negative)
== END 2024-10-09 19:10 | disposition home or self-care (01) ==
PROVIDERS: Emergency Provider Nurse Practitioner Family
DX: J02.0 Streptococcal pharyngitis (principal); Z87.891 Personal history of nicotine dependence; I10 Essential (primary) hypertension; J45.909 Unspecified asthma, uncomplicated; G47.33 Obstructive sleep apnea (adult) (pediatric)
CPT/HCPCS: 87880; 99213; G0463

== ENCOUNTER 2024-12-31 09:35 | Emergency (ER) | payer MEDICAID, SELFPAY ==
[2024-12-31 09:40] VITALS: BP 148/92; PULSE 100; RESP 16; TEMP 37.2; O2SAT 100
[2024-12-31 10:23] LABS: EDCOVIDSCREEN Negative (Negative); EDINFLUASCREEN Negative (Negative); EDINFLUBSCREEN Negative (Negative)
--- NOTE | 2024-12-31 10:35 | ED.URI ---
HPI - URI/Sore Throat General Chief Complaint: Upper Respiratory Infection Stated Complaint: Sinus/Headache Time Seen by Provider: 12/31/24 10:35 Source: patient, RN notes reviewed and old records reviewed Mode of arrival: ambulatory Limitations: no limitations History of Present Illness HPI Narrative: Patient with asthma presents with complaints asthma symptoms as well as flu-like symptoms. He reports that he began having increased asthma symptoms several days ago, began with flu-like symptoms last night. He has been using his inhaler and [id number] medications with moderate relief. States fever has been as high as 101.8. He is not in any distress, including respiratory distress. He voices no other concerns or complaints today. Related Data Allergies Allergy/AdvReac Type Severity Reaction Status Date / Time No Known Drug Allergies Allergy Unknown Unknown Verified 12/31/24 10:13 Feathers Allergy Intermediate Unknown Uncoded 12/31/24 10:13 Grass Allergy Unknown Unknown Uncoded 12/31/24 10:13 milk Allergy Unknown Unknown Uncoded 12/31/24 10:13 Review of Systems Review of Systems: All systems reviewed & are unremarkable except as noted in HPI and below Constitutional: Constitutional: Reports no additional constitutional complaints, Reports fever(s), Reports headache(s) and Reports lethargy ENT: Reports system reviewed and no additional complaints, except as documented, Reports nasal congestion and Reports nasal discharge Cardiovascular: Cardiovascular: Reports no additional cardiovascular complaints Respiratory: Respiratory: Reports no additional respiratory complaints, Reports cough and Reports wheezing Gastrointestinal: Gastrointestinal: Reports no additional gastrointestinal complaints PMF Past Medical History Medical History (Updated 12/31/24 @ 10:43 by Heidi Barrios APRN) DYLAN on CPAP Hypertension Cigarette nicotine dependence Overweight Asthma Family History Family History Mother Asthma Social History Social History Smoking status: Former smoker Tobacco type: cigarettes and cigars Additional smoking assessment comments: Quit 2019 Alcohol intake: unknown Substance use: never Spiritual care concerns: No Comments At the time of my signature, I reviewed and agree with the nursing past medical, surgical, social, and family history. There is no relevant family history pertinent to the patient complaint. Exam Const: General: cooperative, no acute distress, alert and awake Orientation/consciousness: oriented to person, oriented to place and oriented to time HENMT: Head: normal to inspection Ears: TM's normal bilaterally Mouth: Yes moist mucous membranes Resp: Effort & Inspection: normal respiratory effort and able to speak in complete sentences Auscultation: clear to auscultation bilaterally, no crackles, no rales, no rhonchi and wheezes expiratory wheezes (Very faint) Cardio: Palpation: normal PMI Rate: regular rate Rhythm: regular rhythm Heart sounds: S1 normal heart sound present and S2 normal heart sound present Neuro: General: oriented to person, oriented to place and oriented to time Cranial nerves: Yes CN's II-XII intact bilaterally Psych: Appearance: grossly normal Thought process: Normal thought process present Insight: Good insight present (Psych) Judgement: Good judgement present (Psych) Course Course Level of Care: Express Care Visit Vital Signs Vital signs: Vital Signs Temperature 99.0 F 12/31/24 09:40 Pulse Rate 100 12/31/24 09:40 Respiratory Rate 16 12/31/24 09:40 Blood Pressure 148/92 H 12/31/24 09:40 Pulse Oximetry 100 12/31/24 09:40 Oxygen Delivery Room Air 12/31/24 09:40 Temperature 99.0 F 12/31/24 09:40 Pulse Rate 100 12/31/24 09:40 Respiratory Rate 16 12/31/24 09:40 Blood Pressure 148/92 H 12/31/24 09:40 Pulse Oximetry 100 12/31/24 09:40 Oxygen Delivery Room Air 12/31/24 09:40 Reviewed MDM - URI/Sore Throat MDM Narrative Medical decision making narrative: Negative COVID, negative flu. Patient does have viral URI and asthma exacerbation. He is nontoxic appearing and not in any distress. He is stable for discharge home with supportive care, prednisone burst, albuterol refill. Work note provided. Discharge instructions reviewed with patient, as well as provided in writing per nursing staff. The instructions also include specific and strict return/GO TO THE ER as well as f/u information. All questions have been answered, and the patient deny any further questions with discharge and discharge plan. Some parts of this dictation were generated by voice recognition software and may contain typographical and/or grammatical inaccuracies. Differential Diagnosis Differential diagnosis: Likely upper respiratory infection, otitis media, viral infection and influenza Medical Records Attestation: I reviewed the patient's medical records. Lab Data Attestation: I reviewed the patient's lab results. Labs: Lab Results 12/31/24 Range/Units 09:43 POC Influenza A Ag Negative (Negative) POC Influenza B Ag Negative (Negative) POC SARS CoV-2 Ag Negative (Negative) Discharge Plan Discharge Clinical Impression: Asthma Qualifiers: Asthma severity: unspecified severity Asthma persistence: unspecified Asthma complication type: with acute exacerbation Qualified Code(s): J45.901 - Unspecified asthma with (acute) exacerbation Upper respiratory infection Qualifiers: URI type: unspecified viral URI Qualified Code(s): J06.9 - Acute upper respiratory infection, unspecified Patient Disposition: Home, Self-Care Condition: Stable Instructions: Antibiotic Form, Asthma (ED) Additional Instructions: Take medications as prescribed. Follow-up with primary care provider. Emergency department for new or worsening symptoms Patient Language: Turkish Prescriptions: New prednisone 50 mg tablet 50 mg PO DAILY Qty: 5 0RF albuterol sulfate [Ventolin HFA] 90 mcg/actuation HFA aerosol inhaler 2 puff inhalation QID PRN (Reason: shortness of breath or wheezing) Qty: 8.5 0RF Follow-up/Referrals: PHYSICIAN,[employer]IRE [employer] [Primary Care Provider] - 2 Weeks Stand Alone Forms: Work/School Release IP Time of Disposition: 10:44
== END 2024-12-31 10:50 | disposition home or self-care (01) ==
PROVIDERS: Emergency Provider Nurse Practitioner Family
DX: J45.901 Unspecified asthma with (acute) exacerbation (principal); J06.9 Acute upper respiratory infection, unspecified; Z20.822 Contact with and (suspected) exposure to COVID-19; Z87.891 Personal history of nicotine dependence; I10 Essential (primary) hypertension; G47.33 Obstructive sleep apnea (adult) (pediatric)
CPT/HCPCS: 87426; 87804; 99213; G0463